=== PATIENT | male | born 1950 | race Caucasian/White ===

== ENCOUNTER 2018-04-15 07:46 | Emergency (ER) | payer MEDICARE, OTHER ==
[~2018-04-15] VITALS: Ht 175.3 cm; Wt 127.0 kg
[~2018-04-15 07:46] MED LIST: AMLO10 PO; ASPI81CH PO; Alphagan P5 ML BOTHEYES; CLIN300 PO; CLOP75 PO; DORZOPSO BOTHEYES; DOXY100T53; ERGO400 PO; ESSENTIA TABLE1 EACH PO; Ferrous Fumara324 MG PO; Furosemide20 MG PO; Gabapentin600 MG PO; Hydrochloroth12.5 MG PO; INSUGL100V SC; LEVO750 PO; LIVALO2 MG PO; LOSA50 PO; LYRICA PO; MECL12.5 PO; METF500C PO; METO25ER PO; METO50ER PO; Novolog Fl100 UNIT/1 INJ; Novolog Mix 70-33 M1 SQ; Silvadene20 GM TOP; TAMSULOSIN HCL0.4 MG PO; TORSE20 PO; TRAM50 PO; Tylenol325 MG PO; Xalatan2.5 ML BOTHEYES; ZESTRIL40 MG PO
[2018-04-15] MEDS ORDERED: CHOL10002 PO (08:01)
[2018-04-15] MEDS ORDERED: FISH OIL 1,0001 EAC2 PO (08:02)
[2018-04-15 09:01] LABS: BASOPHILS ABSOLUTE AUTO 0.04 K/mm3 (0.00-0.23); BASOPHILS PERCENT AUTO 1 % (0-2); EOSINOPHILS ABSOLUTE AUTO 0.28 K/mm3 (0.00-0.68); EOSINOPHILS PERCENT AUTO 4 % (0-6); Hematocrit 36.6 % (37.0-53.0); Hemoglobin 11.8 g/dL (13.5-17.5); IMMATURE GRAN ABSOLUTE AUTO 0.04 K/mm3 (0.00-0.10); IMMATURE GRAN PERCENT AUTO 1 % (0-1); LYMPHOCYTES PERCENT AUTO 16 % (21-46); MONOCYTES ABSOLUTE AUTO 0.98 K/mm3 (0.16-1.47); MONOCYTES PERCENT AUTO 15 % (4-13); Mean Corpuscular HGB 29.6 pg (26.0-34.0); Mean Corpuscular HGB Conc 32.2 g/dL (31.5-36.5); Mean Corpuscular Volume 92 fL (80-100); Mean Platelet Volume 11.4 fL (9.1-12.4); NEUTROPHILS PERCENT AUTO 64 % (41-73); Platelet Count 184 K/mm3 (150-400); RDW Coefficient Variation 13.2 % (11.7-14.2); RDW Standard Deviation 43.7 fL (35.1-46.3); Red Blood Cell Count 3.98 M/mm3 (4.30-5.90); White Blood Cell Count 6.74 K/mm3 (4.00-11.30)
[2018-04-15 09:09] LABS: Alanine Aminotransfer (ALT/SGP 23 U/L (12-78); Albumin, Blood 2.9 g/dL (3.4-5.0); Albumin/Globulin Ratio 0.7 (0.8-1.8); Alk Phos 47 U/L (50-136); Anion Gap 9 mmol/L (6-16); Aspartate Aminotrans (AST/SGOT 13 U/L (12-37); Bilirubin, Total 0.5 mg/dL (0.1-1.0); Blood Urea Nitrogen 39 mg/dL (8-24); CO2, Blood 25 mmol/L (21-32); Calcium, Blood 9.4 mg/dL (8.5-10.1); Chloride, Blood 112 mmol/L (98-108); Globulin, Blood 3.9 g/dL (2.2-4.0); Glomerular Filtration Rate 58 (60-); Glucose, Blood 126 mg/dL (70-99); Magnesium, Blood 2.1 mg/dL (1.6-2.4); Potassium, Blood 3.8 mmol/L (3.5-5.5); Sodium, Blood 146 mmol/L (136-145); Total Protein, Blood 6.8 g/dL (6.4-8.2); Troponin I <0.015 ng/mL (0.000-0.040)
== END 2018-04-15 09:45 | disposition home or self-care (01) ==
LOC: ER 07:46
PROVIDERS: Emergency Medicine
DX: S00.83XA Contusion of other part of head, initial encounter (principal); S00.31XA Abrasion of nose, initial encounter; R55 Syncope and collapse; Z88.8 Allergy status to other drugs, medicaments and biological substances; Z88.0 Allergy status to penicillin; Z88.5 Allergy status to narcotic agent; Z79.899 Other long term (current) drug therapy; Z79.4 Long term (current) use of insulin; Z79.82 Long term (current) use of aspirin; Z87.891 Personal history of nicotine dependence; Z79.01 Long term (current) use of anticoagulants; W18.30XA Fall on same level, unspecified, initial encounter
CPT/HCPCS: 36415; 70450; 71045; 80053; 83735; 84484; 85025; 93005; 93010; 93225; 93226; 99284

== ENCOUNTER 2018-12-12 12:27 | Emergency (ER) | payer MEDICARE, OTHER ==
[~2018-12-12] VITALS: Ht 175.3 cm; Wt 120.2 kg
[~2018-12-12 12:27] MED LIST changes: +CHOL10002 PO; +CYAN500 PO; +FISH OIL 1,0001 EAC2 PO; +WARF7.5 PO
[2018-12-12] MEDS ORDERED: AMLO5 PO (13:19)
== END 2018-12-12 14:27 | disposition home or self-care (01) ==
LOC: ER 12:27
DX: S61.211A Laceration without foreign body of left index finger without damage to nail, initial encounter (principal); Z88.8 Allergy status to other drugs, medicaments and biological substances; Z88.0 Allergy status to penicillin; Z88.5 Allergy status to narcotic agent; Z79.899 Other long term (current) drug therapy; Z79.4 Long term (current) use of insulin; Z79.82 Long term (current) use of aspirin; Z79.01 Long term (current) use of anticoagulants; Z87.891 Personal history of nicotine dependence; W26.8XXA Contact with other sharp object(s), not elsewhere classified, initial encounter
CPT/HCPCS: 12002; 99282-25

== ENCOUNTER 2019-10-11 12:26 | Day surgery (SDC) | payer MEDICARE, OTHER ==
[~2019-10-11] VITALS: Ht 175 cm; Wt 116.9 kg
[~2019-10-11 12:26] MED LIST changes: +AMLO5 PO; +Flonase 0.05% N16 GM; +XYZAL5 MG PO
--- NOTE | 2019-10-11 14:19 | NUR ---
Ambulatory in Day Surgery Surgical site prepped with 2% Chlorhexidine cloth wipe. History, Chart, Medications and Allergies reviewed before start of procedure.Patient confirms NPO status and agrees with scheduled surgery. Pre-Op teaching done. Pt verbalizes understanding. History, Chart, Medications and Allergies reviewed before start of procedure. Patient reports completing Chlorhexadine shower X2 prior to admission to hospital.
[2019-10-12 04:10] LABS: BASOPHILS ABSOLUTE AUTO 0.02 K/mm3 (0.00-0.23); BASOPHILS PERCENT AUTO 0 % (0-2); EOSINOPHILS PERCENT AUTO 0 % (0-6); Hematocrit 33.4 % (37.0-53.0); Hemoglobin 10.9 g/dL (13.5-17.5); IMMATURE GRAN ABSOLUTE AUTO 0.07 K/mm3 (0.00-0.10); IMMATURE GRAN PERCENT AUTO 1 % (0-1); LYMPHOCYTES ABSOLUTE AUTO 0.34 K/mm3 (0.84-5.20); LYMPHOCYTES PERCENT AUTO 3 % (21-46); MONOCYTES ABSOLUTE AUTO 0.74 K/mm3 (0.16-1.47); MONOCYTES PERCENT AUTO 6 % (4-13); Mean Corpuscular HGB 29.9 pg (26.0-34.0); Mean Corpuscular HGB Conc 32.6 g/dL (31.5-36.5); Mean Corpuscular Volume 92 fL (80-100); Mean Platelet Volume 11.5 fL (9.1-12.4); NEUTROPHILS ABSOLUTE AUTO 10.79 K/mm3 (1.96-9.15); NEUTROPHILS PERCENT AUTO 90 % (41-73); Platelet Count 150 K/mm3 (150-400); RDW Coefficient Variation 14.1 % (11.7-14.2); RDW Standard Deviation 46.9 fL (35.1-46.3); Red Blood Cell Count 3.64 M/mm3 (4.30-5.90); White Blood Cell Count 11.96 K/mm3 (4.00-11.30)
[2019-10-12 04:25] LABS: Bun/Creatinine Ratio 21.7 (12.0-20.0); Calcium, Blood 8.3 mg/dL (8.5-10.1); Creatinine, Blood 1.66 mg/dL (0.60-1.20); Magnesium, Blood 1.6 mg/dL (1.6-2.4); Potassium, Blood 4.5 mmol/L (3.5-5.5)
[2019-10-12 04:26] LABS: International Normalized Ratio 1.01; Prothrombin Time Results 10.7 Sec (9.7-11.5)
--- NOTE | 2019-10-12 04:43 | NUR ---
SHIFT SUMMARY: CLIVE IS POD1 FOR A LEFT TOTAL KNEE REPLACEMENT. HE IS A&OX4. HE REPORTS GOOD PAIN CONTROL WITH THE APAP, TORADOL, AND NORCO. HE IS [place], HEARING AIDS AT HOME. HE IS USING THE URINAL WITHOUT DIFFICULTY. HE IS TOLERATING PO INTAKE WELL. HIS BROUGHT HIS CPAP FROM HOME, RT SET IT UP FOR HIM AND HE HAS WORN IT THROUGHOUT THE NIGHT. HE AMBULATED 1 PERSON ASSIST. DRESSING C/D&I. IV TO RIGHT FOREARM PATENT. SCDs, VARINDER MULLER AND POLAR PAC IN PLACE. VSS. HE IS ABLE TO MAKE HIS NEEDS KNOWN. HE IS LYING IN BED WITH HIS CALL LIGHT IN REACH.
[2019-10-12] MEDS ORDERED: HYDR1TAB94 PO (09:49)
[2019-10-12] MEDS ORDERED: ENOX40I SC (09:49)
[2019-10-12] MEDS ORDERED: INSR10I SC (09:55)
[2019-10-12] MEDS ORDERED: PROM25 PO (09:56)
[2019-10-12] MEDS ORDERED: Bactrim Ds Tab1 EACH PO (09:56)
--- NOTE | 2019-10-12 11:55 | NUR ---
10/12/19 1155 Nikia Alvarado VERIFICATIONS: EDIT CHART.
--- NOTE | 2019-10-12 14:17 | NUR ---
PATIENT D/C'D HOME WITH AT THIS TIME; BOTH STATE UNDERSTANDING OF MEDS, WOUND CARE, ACTIVITY, OP PT, F/U APPT, ETC. PATIENT TOLERATING PO, VOIDING. STATES PAIN CONTROLLED WITH PO PAIN MEDS. NO ACUTE CHANGES OR C/O AT THIS TIME.
== END 2019-10-12 14:46 | disposition home or self-care (01) ==
LOC: ORSCMMR 12:26 → ORD 13:45 → ORSCMMR 14:00 → ORD 14:00 → SURS 16:35 → ORD 17:00 → SURS 10-12 14:46 → ORSCMMR 10-12 14:46
PROVIDERS: Orthopaedic Surgery
PROC: 0SRD0J9 Replacement of Left Knee Joint with Synthetic Substitute, Cemented, Open Approach (ICD-10-PCS; principal; 2019-10-11 14:00)
PROC: 8E0YXBZ Computer Assisted Procedure of Lower Extremity (ICD-10-PCS; principal; 2019-10-11 14:00)
DX: M17.12 Unilateral primary osteoarthritis, left knee (principal); E11.22 Type 2 diabetes mellitus with diabetic chronic kidney disease; I12.9 Hypertensive chronic kidney disease with stage 1 through stage 4 chronic kidney disease, or unspecified chronic kidney disease; N18.9 Chronic kidney disease, unspecified; Z79.4 Long term (current) use of insulin; Z79.84 Long term (current) use of oral hypoglycemic drugs; F17.210 Nicotine dependence, cigarettes, uncomplicated; I25.10 Atherosclerotic heart disease of native coronary artery without angina pectoris; E78.5 Hyperlipidemia, unspecified; Z79.899 Other long term (current) drug therapy; E66.01 Morbid (severe) obesity due to excess calories; Z68.38 Body mass index [BMI] 38.0-38.9, adult; Z86.73 Personal history of transient ischemic attack (TIA), and cerebral infarction without residual deficits
CPT/HCPCS: 36415; 73560-LT; 80048; 82947; 83735; 85025; 85610; 88300; 94762; 97110; 97116; 97162; A9270-GY; C1713; C1776; J0171; J0735; J1100; J1650; J1815; J1885; J2250; J2370; J2405; J2704; J2710; J2795; J3010; J3370; J7120

== ENCOUNTER 2020-03-24 12:56 | Emergency (ER) | payer MEDICARE, OTHER ==
[~2020-03-24] VITALS: Ht 175.3 cm; Wt 113.4 kg
[~2020-03-24 12:56] MED LIST changes: +Bactrim Ds Tab1 EACH PO; +ENOX40I SC; +FERSU300 PO; +FURO20 PO; +Fish Oil Conc1000 MG PO; +Glucophage1000 MG PO; +HYDR1TAB94 PO; +INSR10I SC; +INSULANPEN SC; +Lyrica150 MG PO; +METO100ER PO; +NOVOLOG100 UNIT/1; +PROM25 PO; +TAMS.4ER PO; +VITAMIN D5000 UNIT PO; +WARF1 PO; +[UNRECOGNIZED DRUG - OTHER]
[2020-03-24] MEDS ORDERED: LOSA50 PO (13:18)
[2020-03-24] MEDS ORDERED: LATA.005SO (13:19)
[2020-03-24] MEDS ORDERED: BRIMONIDINE TART5 M2 (13:19)
[2020-03-24] MEDS ORDERED: ONDA4ODT MM (14:55)
[2020-03-24] MEDS ORDERED: Norco 5-325 Ta1 EACH PO (14:55)
== END 2020-03-24 15:26 | disposition home or self-care (01) ==
LOC: ER 12:56
DX: S43.102A Unspecified dislocation of left acromioclavicular joint, initial encounter (principal); S01.112A Laceration without foreign body of left eyelid and periocular area, initial encounter; S16.1XXA Strain of muscle, fascia and tendon at neck level, initial encounter; Z88.8 Allergy status to other drugs, medicaments and biological substances; Z88.0 Allergy status to penicillin; Z88.5 Allergy status to narcotic agent; Z79.899 Other long term (current) drug therapy; Z79.4 Long term (current) use of insulin; Z87.891 Personal history of nicotine dependence; V89.9XXA Person injured in unspecified vehicle accident, initial encounter
CPT/HCPCS: 70450; 72125; 73030; 99284-25; A9270-GY

== ENCOUNTER → 2022-01-08 | Outpatient (CLI) | payer OTHER ==
[~2022-01-08] MED LIST changes: +BRIMONIDINE TART5 M2; +LATA.005SO; +Norco 5-325 Ta1 EACH PO; +ONDA4ODT MM
[2022-01-08 10:19] LABS: BASOPHILS ABSOLUTE AUTO 0.05 K/mm3 (0.00-0.23); BASOPHILS PERCENT AUTO 1 % (0-2); EOSINOPHILS ABSOLUTE AUTO 0.22 K/mm3 (0.00-0.68); EOSINOPHILS PERCENT AUTO 4 % (0-6); Hematocrit 35.2 % (37.0-53.0); Hemoglobin 11.6 g/dL (13.5-17.5); IMMATURE GRAN ABSOLUTE AUTO 0.02 K/mm3 (0.00-0.10); IMMATURE GRAN PERCENT AUTO 0 % (0-1); LYMPHOCYTES ABSOLUTE AUTO 0.87 K/mm3 (0.84-5.20); LYMPHOCYTES PERCENT AUTO 15 % (21-46); MONOCYTES ABSOLUTE AUTO 0.71 K/mm3 (0.16-1.47); MONOCYTES PERCENT AUTO 12 % (4-13); Mean Corpuscular HGB 30.8 pg (26.0-34.0); Mean Corpuscular Volume 93 fL (80-100); Mean Platelet Volume 10.6 fL (9.1-12.4); NEUTROPHILS ABSOLUTE AUTO 4.02 K/mm3 (1.96-9.15); NEUTROPHILS PERCENT AUTO 68 % (41-73); Platelet Count 156 K/mm3 (150-400); RDW Coefficient Variation 13.5 % (11.7-14.2); RDW Standard Deviation 45.9 fL (35.1-46.3); Red Blood Cell Count 3.77 M/mm3 (4.30-5.90); White Blood Cell Count 5.89 K/mm3 (4.00-11.30)
[2022-01-08 11:06] LABS: Albumin, Blood 3.2 g/dL (3.4-5.0); Albumin/Globulin Ratio 0.9 (0.8-1.8); Bilirubin, Total 0.2 mg/dL (0.1-1.0); Bun/Creatinine Ratio 26.4 (12.0-20.0); Calcium, Blood 8.6 mg/dL (8.5-10.1); Creatinine, Blood 1.63 mg/dL (0.60-1.20); Free Thyroxine 0.8 ng/dL (0.70-1.60); Globulin, Blood 3.6 g/dL (2.2-4.0); Potassium, Blood 4.7 mmol/L (3.5-5.5); Total Protein, Blood 6.8 g/dL (6.4-8.2)
== END | disposition home or self-care (01) ==
LOC: LAB SHORT 10:11 → LAB 10:11
PROVIDERS: General Practice
DX: R06.09 Other forms of dyspnea (principal); R53.81 Other malaise
CPT/HCPCS: 80053; 83880; 84439; 84443; 85025

== ENCOUNTER → 2022-05-01 | Outpatient (CLI) | payer OTHER ==
[2022-05-01 14:03] LABS: BASOPHILS ABSOLUTE AUTO 0.03 K/mm3 (0.00-0.23); BASOPHILS PERCENT AUTO 1 % (0-2); EOSINOPHILS ABSOLUTE AUTO 0.11 K/mm3 (0.00-0.68); EOSINOPHILS PERCENT AUTO 2 % (0-6); Hematocrit 39.2 % (37.0-53.0); Hemoglobin 13.3 g/dL (13.5-17.5); IMMATURE GRAN ABSOLUTE AUTO 0.02 K/mm3 (0.00-0.10); IMMATURE GRAN PERCENT AUTO 0 % (0-1); LYMPHOCYTES ABSOLUTE AUTO 1.02 K/mm3 (0.84-5.20); LYMPHOCYTES PERCENT AUTO 22 % (21-46); MONOCYTES ABSOLUTE AUTO 0.97 K/mm3 (0.16-1.47); MONOCYTES PERCENT AUTO 21 % (4-13); Mean Corpuscular HGB 31.9 pg (26.0-34.0); Mean Corpuscular HGB Conc 33.9 g/dL (31.5-36.5); Mean Corpuscular Volume 94 fL (80-100); Mean Platelet Volume 10.9 fL (9.1-12.4); NEUTROPHILS ABSOLUTE AUTO 2.56 K/mm3 (1.96-9.15); NEUTROPHILS PERCENT AUTO 54 % (41-73); Platelet Count 141 K/mm3 (150-400); RDW Coefficient Variation 13.4 % (11.7-14.2); RDW Standard Deviation 46.1 fL (35.1-46.3); Red Blood Cell Count 4.17 M/mm3 (4.30-5.90); White Blood Cell Count 4.71 K/mm3 (4.00-11.30)
[2022-05-01 14:58] LABS: Albumin, Blood 3.1 g/dL (3.4-5.0); Albumin/Globulin Ratio 0.8 (0.8-1.8); Bilirubin, Total 0.2 mg/dL (0.1-1.0); Calcium, Blood 8.6 mg/dL (8.5-10.1); Creatinine, Blood 1.74 mg/dL (0.60-1.20); Globulin, Blood 4.1 g/dL (2.2-4.0); Potassium, Blood 4.5 mmol/L (3.5-5.5); Total Protein, Blood 7.2 g/dL (6.4-8.2)
== END | disposition home or self-care (01) ==
LOC: LAB SHORT 13:56
PROVIDERS: Physician Assistant
DX: U07.1 COVID-19 (principal)
CPT/HCPCS: 80053; 85025

== ENCOUNTER 2022-07-24 17:52 | Emergency (ER) | payer OTHER ==
[~2022-07-24] VITALS: Ht 175.3 cm; Wt 113.4 kg
[~2022-07-24 17:52] MED LIST changes: -BRIMONIDINE TART5 M2; +BRIMONIDINE TART5 M2 BOTHEYES
[2022-07-24 18:51] LABS: BASOPHILS ABSOLUTE AUTO 0.04 K/mm3 (0.00-0.23); BASOPHILS PERCENT AUTO 1 % (0-2); EOSINOPHILS ABSOLUTE AUTO 0.17 K/mm3 (0.00-0.68); EOSINOPHILS PERCENT AUTO 3 % (0-6); Hematocrit 40.2 % (37.0-53.0); Hemoglobin 13.5 g/dL (13.5-17.5); IMMATURE GRAN ABSOLUTE AUTO 0.03 K/mm3 (0.00-0.10); IMMATURE GRAN PERCENT AUTO 1 % (0-1); LYMPHOCYTES ABSOLUTE AUTO 1.34 K/mm3 (0.84-5.20); LYMPHOCYTES PERCENT AUTO 21 % (21-46); MONOCYTES ABSOLUTE AUTO 0.83 K/mm3 (0.16-1.47); MONOCYTES PERCENT AUTO 13 % (4-13); Mean Corpuscular HGB 30.8 pg (26.0-34.0); Mean Corpuscular HGB Conc 33.6 g/dL (31.5-36.5); Mean Corpuscular Volume 92 fL (80-100); Mean Platelet Volume 10.7 fL (9.1-12.4); NEUTROPHILS ABSOLUTE AUTO 4.11 K/mm3 (1.96-9.15); NEUTROPHILS PERCENT AUTO 63 % (41-73); Platelet Count 163 K/mm3 (150-400); RDW Coefficient Variation 12.6 % (11.7-14.2); RDW Standard Deviation 41.4 fL (35.1-46.3); Red Blood Cell Count 4.39 M/mm3 (4.30-5.90); White Blood Cell Count 6.52 K/mm3 (4.00-11.30)
[2022-07-24 19:13] LABS: Magnesium, Blood 2.4 mg/dL (1.6-2.4)
[2022-07-24 19:14] LABS: Source, Urine Clean Catch
[2022-07-24 19:21] LABS: Appearance, Urine Clear (Clear); Bilirubin, Urine Neg (Neg); Blood, Urine 2+ (Neg); Glucose Qualitative, Urine Neg (Neg); Ketones, Urine Neg (Neg); Leukocyte Esterase, Urine Neg (Neg); Nitrite, Urine Neg (Neg); Protein, Urine 3+ (Neg); Specific Gravity, Urine 1.015 (1.003-1.022); Urobilinogen, Urine NORM (Normal)
[2022-07-24 19:31] LABS: Color, Urine Pale Yellow (P-Yellow)
[2022-07-24 19:34] LABS: Bacteria Few /hpf; Red Blood Cells, Urine 0-2 /hpf (0-2); Squamous Epithelial Cells Not Seen /hpf (Few); White Blood Cells, Urine 0-2 /hpf (0-5)
[2022-07-24 19:35] LABS: Other Crystals Rare /hpf
[2022-07-24 19:41] LABS: Influenza A, PCR NEGATIVE (NEGATIVE); Influenza B, PCR NEGATIVE (NEGATIVE); Resp Syncytial Virus, PCR NEGATIVE (NEGATIVE); SARS-Cov-2 (COVID-19) PCR, MMC NEGATIVE (NEGATIVE)
[2022-07-24 20:35] LABS: Albumin, Blood 3.3 g/dL (3.4-5.0); Albumin/Globulin Ratio 0.8 (0.8-1.8); Bilirubin, Total 0.3 mg/dL (0.1-1.0); Bun/Creatinine Ratio 32.7 (12.0-20.0); Calcium, Blood 9.3 mg/dL (8.5-10.1); Creatinine, Blood 1.5 mg/dL (0.60-1.20); Globulin, Blood 3.9 g/dL (2.2-4.0); Potassium, Blood 4.4 mmol/L (3.5-5.5); Total Protein, Blood 7.2 g/dL (6.4-8.2)
[2022-07-25] MEDS ORDERED: SOAANZ20 M1 PO (18:47)
[2022-07-25] MEDS ORDERED: TORSE20 PO (18:49)
[2022-07-25] MEDS ORDERED: INSULANI SC (18:51)
[2022-07-25] MEDS ORDERED: FARXIGA10 MG PO (18:57)
[2022-07-25] MEDS ORDERED: TRULICITY3 MG/0.5 M (18:57)
[2022-07-25] MEDS ORDERED: TRULICITY4.5 MG/0.5 SC (18:58)
== END 2022-07-24 21:51 | disposition home or self-care (01) ==
LOC: ER 17:52
PROVIDERS: Student in an Organized Health Care Education/Training Program
DX: G45.9 Transient cerebral ischemic attack, unspecified (principal); B34.9 Viral infection, unspecified; I10 Essential (primary) hypertension; E11.9 Type 2 diabetes mellitus without complications; I25.10 Atherosclerotic heart disease of native coronary artery without angina pectoris; N40.0 Benign prostatic hyperplasia without lower urinary tract symptoms; Z88.0 Allergy status to penicillin; Z88.5 Allergy status to narcotic agent; Z88.8 Allergy status to other drugs, medicaments and biological substances; Z79.4 Long term (current) use of insulin; Z79.01 Long term (current) use of anticoagulants; Z79.899 Other long term (current) drug therapy; Z87.891 Personal history of nicotine dependence; Z20.822 Contact with and (suspected) exposure to COVID-19
CPT/HCPCS: 0241U; 70450; 71045; 80053; 81001; 83735; 83880; 84145; 84484; 85025; 93005; 93010; A9270

== ENCOUNTER 2022-07-25 12:49 | Inpatient (IN) | payer OTHER ==
[~2022-07-25] VITALS: Ht 175.3 cm; Wt 113.4 kg
[~2022-07-25 12:49] MED LIST changes: -LATA.005SO; +LATA.005SO BOTHEYES
[2022-07-25 13:31] LABS: BASOPHILS ABSOLUTE AUTO 0.04 K/mm3 (0.00-0.23); BASOPHILS PERCENT AUTO 1 % (0-2); EOSINOPHILS ABSOLUTE AUTO 0.13 K/mm3 (0.00-0.68); EOSINOPHILS PERCENT AUTO 2 % (0-6); Hematocrit 37.4 % (37.0-53.0); Hemoglobin 12.9 g/dL (13.5-17.5); IMMATURE GRAN ABSOLUTE AUTO 0.01 K/mm3 (0.00-0.10); IMMATURE GRAN PERCENT AUTO 0 % (0-1); LYMPHOCYTES ABSOLUTE AUTO 0.91 K/mm3 (0.84-5.20); LYMPHOCYTES PERCENT AUTO 15 % (21-46); MONOCYTES ABSOLUTE AUTO 0.79 K/mm3 (0.16-1.47); MONOCYTES PERCENT AUTO 13 % (4-13); Mean Corpuscular HGB 31.3 pg (26.0-34.0); Mean Corpuscular HGB Conc 34.5 g/dL (31.5-36.5); Mean Corpuscular Volume 91 fL (80-100); Mean Platelet Volume 10.7 fL (9.1-12.4); NEUTROPHILS PERCENT AUTO 69 % (41-73); Platelet Count 161 K/mm3 (150-400); RDW Coefficient Variation 12.7 % (11.7-14.2); RDW Standard Deviation 41.6 fL (35.1-46.3); Red Blood Cell Count 4.12 M/mm3 (4.30-5.90); White Blood Cell Count 6.08 K/mm3 (4.00-11.30)
[2022-07-25 14:02] LABS: Bun/Creatinine Ratio 32.7 (12.0-20.0); Calcium, Blood 8.7 mg/dL (8.5-10.1); Creatinine, Blood 1.47 mg/dL (0.60-1.20); Potassium, Blood 4.5 mmol/L (3.5-5.5)
[2022-07-25 16:52] LABS: International Normalized Ratio 1.73; Prothrombin Time Results 17.5 Sec (9.7-11.5)
[2022-07-25] MEDS ORDERED: SOAANZ20 M1 PO (18:47)
[2022-07-25] MEDS ORDERED: TORSE20 PO (18:49)
[2022-07-25] MEDS ORDERED: INSULANI SC (18:51)
[2022-07-25] MEDS ORDERED: FARXIGA10 MG PO (18:57)
[2022-07-25] MEDS ORDERED: TRULICITY3 MG/0.5 M (18:57)
[2022-07-25] MEDS ORDERED: TRULICITY4.5 MG/0.5 SC (18:58)
--- NOTE | 2022-07-26 05:36 | NUR ---
CLIVE HAD NO FURTHER DETECTABLE EXTENSION OF HIS CVA SINCE HIS ARRIVAL TO ROOM 364 LAST EVENING. PATIENT HAS A PRONOUNCED LEFT SIDED FACIAL DROOP, WEAKNESS IN LEFT UPPER EXTREMITY NOTICEABLE MOSTLY IN A VERY WEAK TARIFF COMPILER. CLIVE IS ABLE TO ELEVATE HIS ARM OFF OF THE BED AND KEEP IT LEVEL WITH HIS RIGHT ARM FOR >20 SECONDS. LEFT LEG, HE COULD BARELY LIFT MORE THAN 1-1.5" OFF OF THE MATTRESS AND WAS UNABLE TO HOLD IT AT ALL. HE IS ABLE TO DORSI AND PLANTERFLEX WITH STRENGTH EQUAL TO HIS RIGHT FOOT. MICONAZOLE POWDER WAS ORDERED FOR HIS LEFT FLANK AREA WHICH IS VERY HOT PINK AND EXCORIATED IN APPEARANCE. PATIENT IS HAVING DIFFICULTY REMEMBERING TO TIP CHIN DOWN WHEN SWALLOWING, WITHOUT ASSISTANCE FROM NURSING STAFF, HE CHOKES WITHOUT PROPER ASSISTANCE. EVAL BY SPEECH THERAPIST PENDING. IN THE INTERIM, ALL FLUIDS TO BE TAKEN OUT OF DIRECT REACH, AND GIVEN ONLY BY STAFF OR TRAINED FAMILY. REACH,
[2022-07-26 06:02] LABS: Hemoglobin 13.6 g/dL (13.5-17.5); Mean Corpuscular HGB 30.8 pg (26.0-34.0); Mean Corpuscular Volume 91 fL (80-100); Mean Platelet Volume 10.7 fL (9.1-12.4); Platelet Count 182 K/mm3 (150-400); RDW Coefficient Variation 12.6 % (11.7-14.2); RDW Standard Deviation 41.7 fL (35.1-46.3); Red Blood Cell Count 4.42 M/mm3 (4.30-5.90); White Blood Cell Count 8.21 K/mm3 (4.00-11.30)
[2022-07-26 06:16] LABS: International Normalized Ratio 1.48; Prothrombin Time Results 15.1 Sec (9.7-11.5)
[2022-07-26 06:47] LABS: Alanine Aminotransfer (ALT/SGP 23 U/L (12-78); Albumin/Globulin Ratio 0.7 (0.8-1.8); Alk Phos 52 U/L (50-136); Anion Gap 7 mmol/L (6-16); Aspartate Aminotrans (AST/SGOT 12 U/L (12-37); Bilirubin, Total 0.4 mg/dL (0.1-1.0); Blood Urea Nitrogen 42 mg/dL (8-24); Bun/Creatinine Ratio 30.7 (12.0-20.0); CHOL/HDL RATIO 9.2; CO2, Blood 23 mmol/L (21-32); Calcium, Blood 9.4 mg/dL (8.5-10.1); Chloride, Blood 112 mmol/L (98-108); Cholesterol 342 mg/dL (50-200); Creatinine, Blood 1.37 mg/dL (0.60-1.20); Globulin, Blood 4.2 g/dL (2.2-4.0); Glomerular Filtration Rate 54 (60-); Glucose, Blood 113 mg/dL (70-99); HDL Cholesterol 37 mg/dL (>39); LDL/HDL RATIO Unable to Calculate; Low Density Lipoprotein Chol Unable to Calculate mg/dL (0-110); Sodium, Blood 142 mmol/L (136-145); Total Protein, Blood 7.2 g/dL (6.4-8.2); Triglycerides 1315 mg/dL (30-160); Very Low Density Lipoprot Chol 263 mg/dL (6-32)
--- NOTE | 2022-07-26 07:30 | NUR ---
ASSUMED CARE: PT RESTING IN BED, INTERACTIVE WITH STAFF DURING BEDSIDE REPORT. LEFT SIDED FACIAL DROOP NOTED. NIGHT RN REPORTS IMPROVED. NO ACUTE NEEDS AT THIS TIME.
[2022-07-26] MEDS ORDERED: DORZOPSO BOTHEYES (10:48)
[2022-07-26] MEDS ORDERED: XYZAL5 MG PO (10:50)
[2022-07-26] MEDS ORDERED: AMLO5 PO (10:50)
--- NOTE | 2022-07-26 15:56 | NUR ---
PT'S EVENING BP IN 170S SYSTOLIC. CALL TO DR KESSLER. STATES TO MAINTAIN BP LESS THAN 180 SYSTOLIC. ALSO RELAYED PT'S FEELINGS OF CONSTIPATION. DR TO PLACE NEW ORDERS.
--- NOTE | 2022-07-26 17:58 | NUR ---
SHIFT SUMMARY: PT'S NEURO ASSESSMENTS HAVE IMPROVED ALL SHIFT. INCREASED STRENGTH TO LEFT ARM AND FINGERS AND SPEECH IS MORE CLEAR. PT DOING BED EXERCISES IN GOALS OF IMPROVING MOBILITY. PT AND FAMILY EDUCATED ON PLAN OF CARE FOR STROKE. SAID SHE HEARD THERE WAS INCREASED RISK OF SECOND STROKE, EDUCATED ON SIGNS AND SYMPTOMS TO WATCH FOR. DENIES QUESTIONS OR CONCERNS. NEW IV THIS SHIFT.
[2022-07-27 04:55] LABS: BASOPHILS ABSOLUTE AUTO 0.05 K/mm3 (0.00-0.23); BASOPHILS PERCENT AUTO 1 % (0-2); EOSINOPHILS ABSOLUTE AUTO 0.23 K/mm3 (0.00-0.68); EOSINOPHILS PERCENT AUTO 2 % (0-6); Hemoglobin 14.1 g/dL (13.5-17.5); IMMATURE GRAN ABSOLUTE AUTO 0.03 K/mm3 (0.00-0.10); IMMATURE GRAN PERCENT AUTO 0 % (0-1); LYMPHOCYTES ABSOLUTE AUTO 1.18 K/mm3 (0.84-5.20); LYMPHOCYTES PERCENT AUTO 12 % (21-46); MONOCYTES ABSOLUTE AUTO 1.55 K/mm3 (0.16-1.47); MONOCYTES PERCENT AUTO 16 % (4-13); Mean Corpuscular HGB 30.8 pg (26.0-34.0); Mean Corpuscular HGB Conc 33.6 g/dL (31.5-36.5); Mean Corpuscular Volume 92 fL (80-100); Mean Platelet Volume 10.5 fL (9.1-12.4); NEUTROPHILS ABSOLUTE AUTO 6.97 K/mm3 (1.96-9.15); NEUTROPHILS PERCENT AUTO 70 % (41-73); Platelet Count 178 K/mm3 (150-400); RDW Coefficient Variation 12.6 % (11.7-14.2); RDW Standard Deviation 42.4 fL (35.1-46.3); Red Blood Cell Count 4.58 M/mm3 (4.30-5.90); White Blood Cell Count 10.01 K/mm3 (4.00-11.30)
[2022-07-27 05:02] LABS: International Normalized Ratio 1.42; Prothrombin Time Results 14.6 Sec (9.7-11.5)
[2022-07-27 05:45] LABS: Anion Gap 8 mmol/L (6-16); Blood Urea Nitrogen 39 mg/dL (8-24); Bun/Creatinine Ratio 28.1 (12.0-20.0); CO2, Blood 22 mmol/L (21-32); Calcium, Blood 9.4 mg/dL (8.5-10.1); Chloride, Blood 109 mmol/L (98-108); Creatinine, Blood 1.39 mg/dL (0.60-1.20); Glomerular Filtration Rate 54 (60-); Glucose, Blood 170 mg/dL (70-99); Phosphorus, Blood 3.1 mg/dL (2.5-4.9); Potassium, Blood 4.2 mmol/L (3.5-5.5); Sodium, Blood 139 mmol/L (136-145)
--- NOTE | 2022-07-27 05:57 | NUR ---
PT ADMITTED WITH TIA/CVA. CT OF HEAD SHOWS NO NEW INFARCT. UNABLE TO PERFORM MRI D/T SILVER PLATING IN PT'S NECK; PLAN FOR REPEAT CT THIS AM. PT AWOKE CONFUSED, UNAWARE HE WAS HOSPITALIZED, WHILE CALLING OUT FOR HIS "MAIRA". UPON ENTERING ROOM, PT FOUND TO BE SATURATED OF URINE; BED/GOWN CHANGE COMPLETED. BED ALARM ACTIVATED. BP NOTED TO BE ELEVATED TOWARD EARLY HOURS (180'S/100'S); ALSO C/O HEADACHE. PRN HYDRALAZINE AND TYLENOL GIVEN. NOTIFIED, ADVISED TO MONITOR FOR NOW. NO OTHER ISSUES NOTED.
--- NOTE | 2022-07-27 18:40 | NUR ---
Assummed care of patient at 1200, handoff report at bedside. Patient worked with therapy. Denied pain/discomfort. Pills given whole with applesauce, set up meal tray, patient able to feed self. Vitals stable. Will continue to monitor.
[2022-07-28 05:07] LABS: International Normalized Ratio 1.65; Prothrombin Time Results 16.8 Sec (9.7-11.5)
--- NOTE | 2022-07-28 06:42 | NUR ---
NOC SHIFT SUMMARY PT ADMITTED FOR CVA. LEFT SIDED DEFICITS WORSENING. PT HAVING DIFFICULT TIME GETTING PATIENT TO EDGE OF BED D/T SEVERE WEAKNESS. MULTIPLE DIAGNOSTIC TESTS TO BE DONE YET. ANTICIPATE MULTIPLE MORE DAYS OF INPATIENT HOSPITALIZATION. NO ISSUES NOTED.
--- NOTE | 2022-07-28 16:24 | NUR ---
PT AOX4 AND COOPERATIVE OF CARE. PT CONTINUES WITH L SIDED WEAKNESS AND HAS WORKED WITH OT AND PHYSICAL THERAPY WELL TODAY. PT DOES GET TIRED QUICKLY. PT CAN CALL APPROPRIATELY AND MAKES HIS NEEDS KNOWN. PT SAT UP IN CHAIR FOR A SHORT TIME IN THE AM THEN WANTED BACK TO BED. CALL LIGHT IS WITHIN REACH WILL CONTINUE TO MONITOR.
[2022-07-29 05:34] LABS: International Normalized Ratio 1.94; Prothrombin Time Results 19.5 Sec (9.7-11.5)
--- NOTE | 2022-07-29 05:34 | NUR ---
Rn summary: Patient is alert and oriented. He does have some slurred speech with L sided faial droop. Pt neuro is unchanged. He has a weak left hand shearing machine tender. He is able to raise left arm off bed but it is painful due to old shoulder injury. Pt is able to do push pulls with left foot and raise left knee. Pt is able to assist with turning but needs assist in positioning. Pt is incontinent of urine. Condom cath was placed but did not stay on. Pt tries to use urinal himself and usually spills it. Although he can use the call light, he tries to use urinal by himself although we have asked him to call. Pt is able to take pills whole with water without difficulty. He did c/o back pain this morning and tylenol was given. Pt is using his CPAP from home and has rested well. Plan is to hopefully place in a IRU in [place].
--- NOTE | 2022-07-29 17:05 | NUR ---
PT IS A/OX4, PLEASANT AND COOPERATIVE. PT HAS SOME SLURRED SPEECH AND IS HARD TO UNDERSTAND AT TIMES. THE PT HAS A LEFT SIDE FACIAL DROOP. THE PT APPEARS TO BE BREATHING EASILY ON RA AT THIS TIME. THE PT WAS ABLE TO GET UP FROM THE BED WITH ASSISTANCE THIS AM AND SHUFFLE TO THE RECLINER. THE PT WAS UP IN THE RECLINER FOE OVER HALF THE DAY TODAY. PT WAS MEDICATED FOR BACK AND SHOULDER PAIN X2 TODAY. THE PT WORKED WITH BOTH THE PHYSICAL AND OCCUPATIONAL THERAPIST TODAY. PTS WAS AT THE BEDSIDE FOR MOST OF THE DAY. CALL LIGHT IN REACH. WILL CONTINUE TO MONITOR AND ASSESS FOR CHANGES
[2022-07-30 05:00] LABS: International Normalized Ratio 2.13; Prothrombin Time Results 21.3 Sec (9.7-11.5)
--- NOTE | 2022-07-30 06:54 | NUR ---
Rn summary: Patient is alert. He is cooperative and thankful for cares given. Pt is frequently incontinent of urine. Pt was incontinent of loose stool the beginning of shift. Pt sleeps with his home CPAP, cont. Biox is on, sats low 90's. Pt does have redened areas on buttocks, no open areas noted. Pt has an area to his Rt heel that is healed but heal mepilex applied for protection, states hot pipe gauger has been working to keep it healed. Pt left arm is more functional, he is able to lift it higher, etl analyst did seem slightly less strong tonight. Still has slurred speach. Pt is able to use call light. Pt has facial droop and tounge does deviate to the left. Pt repositioned frequently. Pt slept very little. Pt was medicated at the beginning of shift with fentanyl 2 mcg for left shoulder pain, he did get relief and rested afterward. report given to day shift.
--- NOTE | 2022-07-30 16:42 | NUR ---
PT IS A/OX4, PLEASANT AND COOPERATIVE. THE PT IS A MAX ASSIST UP . THE PT WAS ABLE TO STAND UP AND MOVE TO THE CHAIR EARLY THIS AM WITH 1 ASSIST, HOWEVER, WHEN GETTING BACK TO THE BED THIS AFTERNOON THE PT WAS VERY WEAK AND REQUIRED 2 PERSON MAX ASSIST TRANSFER. THE PT REPORTED PAIN IN HIS BACK, LEFT SHOULDER AND LEFT ANKLE. THE PT WAS MEDICATED FOR PAIN T/O THE DAY. THE PTS FAMILY WAS CONCERNED THAT THE PT OCCASIONALY COUGHED WHILE EATING . DR. KESSLER WAS CALLED PER THIER REQUEST AND A SPEECH THERAPY EVAL WAS ORDERED. THE PT SEEMED TO DRINK WATER T/O THE DAY WITHOUT COUGHING. THE PT APPEARS TO BE BREATHING EASILY ON RA AT THIS TIME. CALL LIGHT IN REACH. WILL CONTINUE TO MONITOR AND ASSESS FOR CHANGES
[2022-07-31 04:52] LABS: International Normalized Ratio 2.09; Prothrombin Time Results 20.9 Sec (9.7-11.5)
--- NOTE | 2022-07-31 05:58 | NUR ---
SHIFT SUMMARY PT ALERT AND ORIENTED X4. DISORIENTED TO TIME. AFEBRILE. HR 70'S. BP STABLE. ON RA, SATS OVER 93%. ON CPAP WHILE SLEEPING. STRUGGLED TO DO ADL'S ON OWN. WOULD FREQUENTLY ATTEMPT TO USE BEDSIDE URINAL BUT "[employer]" AND URINATE BED, D/T LEFT SIDE WEAKNESS. ABLE TO MAKE NEEDS KNOWN. BACK PAIN RELIEVED WITH TYLENOL. IN BED WITH CALL ALARM AT SIDE, WILL CONTINUE TO MONITOR UNTIL REPORT GIVEN TO DAYSHIFT RN
--- NOTE | 2022-07-31 16:03 | NUR ---
SHIFT SUMMARY PT ALERT AND PLEASANT. PT CONTINUES TO HAVE LEFT SIDED WEAKNESS. PT WAS ABLE TO STAND AND PIVOT TO BEDSIDE CHAIR WITH TWO PERSON MAX ASSIST. HOWEVER, A LIFT WAS USED TO GET PT FROM CHAIR TO BED. THE LIFT IS RECCOMENDED FOR TRANSFERS PER PHYSICAL THERAPY. PHYSICAL AND OCCUPATIONAL THERAPY WORKED WITH PT TODAY. PT ALSO HAD A SPEACH EVAL TODAY. PT STATED HE WAS SEEING ANIMALS IN HIS ROOM BUT KNEW THEY WERE NOT REALLY THERE. DOCTOR WAS NOTIFIED OF THE HAULICINATIONS. PT IS TAKING FENTANYL WHICH IS THE SUSPECTED CAUSE OF THE HALUCINATIONS. PT ATTEMPTS TO USE URINAL BUT HAS DIFFICULTY CATCING ALL THE URINE. PT HAS ATTENDS IN PLACE. POSSIBLE D/C TO IRF NEXT WEEK PER PHYSICAL THERAPY.
[2022-08-01 04:36] LABS: BASOPHILS ABSOLUTE AUTO 0.05 K/mm3 (0.00-0.23); BASOPHILS PERCENT AUTO 1 % (0-2); EOSINOPHILS ABSOLUTE AUTO 0.21 K/mm3 (0.00-0.68); EOSINOPHILS PERCENT AUTO 2 % (0-6); Hematocrit 36.6 % (37.0-53.0); Hemoglobin 12.1 g/dL (13.5-17.5); IMMATURE GRAN ABSOLUTE AUTO 0.04 K/mm3 (0.00-0.10); IMMATURE GRAN PERCENT AUTO 0 % (0-1); LYMPHOCYTES ABSOLUTE AUTO 0.83 K/mm3 (0.84-5.20); LYMPHOCYTES PERCENT AUTO 8 % (21-46); MONOCYTES ABSOLUTE AUTO 1.88 K/mm3 (0.16-1.47); MONOCYTES PERCENT AUTO 17 % (4-13); Mean Corpuscular HGB Conc 33.1 g/dL (31.5-36.5); Mean Corpuscular Volume 94 fL (80-100); Mean Platelet Volume 10.8 fL (9.1-12.4); NEUTROPHILS ABSOLUTE AUTO 7.92 K/mm3 (1.96-9.15); NEUTROPHILS PERCENT AUTO 72 % (41-73); Platelet Count 162 K/mm3 (150-400); RDW Coefficient Variation 12.3 % (11.7-14.2); RDW Standard Deviation 42.5 fL (35.1-46.3); White Blood Cell Count 10.93 K/mm3 (4.00-11.30)
[2022-08-01 04:50] LABS: International Normalized Ratio 2.1
[2022-08-01 05:02] LABS: Albumin, Blood 2.7 g/dL (3.4-5.0); Anion Gap 8 mmol/L (6-16); Blood Urea Nitrogen 58 mg/dL (8-24); Bun/Creatinine Ratio 31.5 (12.0-20.0); CO2, Blood 20 mmol/L (21-32); Calcium, Blood 9.2 mg/dL (8.5-10.1); Chloride, Blood 107 mmol/L (98-108); Creatinine, Blood 1.84 mg/dL (0.60-1.20); Glomerular Filtration Rate 38 (60-); Glucose, Blood 161 mg/dL (70-99); Magnesium, Blood 2.4 mg/dL (1.6-2.4); Potassium, Blood 4.6 mmol/L (3.5-5.5); Sodium, Blood 135 mmol/L (136-145)
--- NOTE | 2022-08-01 16:10 | NUR ---
SHIFT SUMMARY PATIENT IS ALERT AND ORIENTED. PATIENT HAS BEEN PLEASENT AND COOPERATIVE WITH CARE. PATIENT HAS NOT HAD ANY ACUTE EVENTS THIS SHIFT. VITAL SIGNS REVIEWED. PATIENT IS PLANNING ON DISCHARGING TO SNF ON WEDNESDAY. PATIENT HAS COMPLAINED OF BACK PAIN ONCE THIS SHIFT, MEDICATED PER EMAR. PATIENT HAS NOT COMPLAINED OF NAUSEA, VOMITTING OR SOB THIS SHIFT. HUGO MONITOR UNTIL SHIFT CHANGE.
--- NOTE | 2022-08-02 04:16 | NUR ---
SHIFT SUMMARY; PATIENT WORE HIS CPAP DURING NOC SHIFT. HE HAD PLEASANT AFFECT AND WAS COOPERATIVE WITH CARE DURING NOC. HIS VITAL SIGNS ARE WITHIN NORMAL LIMITS. HE IS ABLE TO MAKE HIS NEEDS KNOWN AND USING CALL LIGHT APPROPRIATELY. CONDOM CATHETER PLACED ON PATIENT DURING NOC SHIFT FOR COMFORT. HIS LUNGS ARE CLEAR TO AUSCULATION BUT DIM IN THE BASES. WILL CONTINUE TO MONITOR THIS PATIENT CLOSELY UNTIL REPORT AND HAND OFF AT SHIFT CHANGE TO DAY SHIFT RN.
[2022-08-02 04:44] LABS: Albumin, Blood 2.5 g/dL (3.4-5.0); Anion Gap 7 mmol/L (6-16); Blood Urea Nitrogen 59 mg/dL (8-24); Bun/Creatinine Ratio 31.4 (12.0-20.0); CO2, Blood 20 mmol/L (21-32); Calcium, Blood 8.9 mg/dL (8.5-10.1); Chloride, Blood 107 mmol/L (98-108); Creatinine, Blood 1.88 mg/dL (0.60-1.20); Glomerular Filtration Rate 37 (60-); Glucose, Blood 169 mg/dL (70-99); International Normalized Ratio 2.16; Magnesium, Blood 2.5 mg/dL (1.6-2.4); Potassium, Blood 4.9 mmol/L (3.5-5.5); Prothrombin Time Results 21.6 Sec (9.7-11.5); Sodium, Blood 134 mmol/L (136-145)
[2022-08-02 05:59] LABS: BASOPHILS ABSOLUTE AUTO 0.03 K/mm3 (0.00-0.23); BASOPHILS PERCENT AUTO 0 % (0-2); EOSINOPHILS ABSOLUTE AUTO 0.19 K/mm3 (0.00-0.68); EOSINOPHILS PERCENT AUTO 3 % (0-6); Hemoglobin 11.4 g/dL (13.5-17.5); IMMATURE GRAN ABSOLUTE AUTO 0.03 K/mm3 (0.00-0.10); IMMATURE GRAN PERCENT AUTO 0 % (0-1); LYMPHOCYTES ABSOLUTE AUTO 0.84 K/mm3 (0.84-5.20); LYMPHOCYTES PERCENT AUTO 11 % (21-46); MONOCYTES ABSOLUTE AUTO 1.52 K/mm3 (0.16-1.47); MONOCYTES PERCENT AUTO 20 % (4-13); Mean Corpuscular HGB 30.6 pg (26.0-34.0); Mean Corpuscular HGB Conc 33.5 g/dL (31.5-36.5); Mean Corpuscular Volume 91 fL (80-100); Mean Platelet Volume 10.7 fL (9.1-12.4); NEUTROPHILS ABSOLUTE AUTO 5.11 K/mm3 (1.96-9.15); NEUTROPHILS PERCENT AUTO 66 % (41-73); Platelet Count 176 K/mm3 (150-400); RDW Coefficient Variation 12.1 % (11.7-14.2); RDW Standard Deviation 40.8 fL (35.1-46.3); Red Blood Cell Count 3.72 M/mm3 (4.30-5.90); White Blood Cell Count 7.72 K/mm3 (4.00-11.30)
[2022-08-02 12:40] LABS: Albumin, Blood 2.5 g/dL (3.4-5.0); Anion Gap 7 mmol/L (6-16); Blood Urea Nitrogen 59 mg/dL (8-24); Bun/Creatinine Ratio 32.8 (12.0-20.0); CO2, Blood 20 mmol/L (21-32); Chloride, Blood 106 mmol/L (98-108); Glomerular Filtration Rate 39 (60-); Glucose, Blood 168 mg/dL (70-99); Phosphorus, Blood 3.9 mg/dL (2.5-4.9); Potassium, Blood 4.7 mmol/L (3.5-5.5); Sodium, Blood 133 mmol/L (136-145)
--- NOTE | 2022-08-02 16:51 | NUR ---
SHIFT SUMMARY PATIENT IS ALERT AND ORIENTED. PATIENT HAS NOT HAD ANY ACUTE EVENTS THIS SHIFT. VITAL SIGNS REVIEWED. PATIENT HAS BEEN IN CHAIR MOST OF SHIFT. PATIENT HAS BEEN USING URINAL WELL. PATIENT HAS NOT COMPLAINED OF NAUSEA, PAIN, SOB OR VOMMITING THIS SHIFT. BED IN LOCKED AND LOWEST POSITION. CALL LIGHT IN PLACE. WILL MONITOR UNTIL SHIFT CHANGE.
[2022-08-03 05:23] LABS: BASOPHILS ABSOLUTE AUTO 0.04 K/mm3 (0.00-0.23); BASOPHILS PERCENT AUTO 1 % (0-2); EOSINOPHILS ABSOLUTE AUTO 0.19 K/mm3 (0.00-0.68); EOSINOPHILS PERCENT AUTO 3 % (0-6); Hematocrit 35.1 % (37.0-53.0); Hemoglobin 11.4 g/dL (13.5-17.5); IMMATURE GRAN ABSOLUTE AUTO 0.03 K/mm3 (0.00-0.10); IMMATURE GRAN PERCENT AUTO 0 % (0-1); LYMPHOCYTES ABSOLUTE AUTO 1.02 K/mm3 (0.84-5.20); LYMPHOCYTES PERCENT AUTO 14 % (21-46); MONOCYTES PERCENT AUTO 19 % (4-13); Mean Corpuscular HGB 30.3 pg (26.0-34.0); Mean Corpuscular HGB Conc 32.5 g/dL (31.5-36.5); Mean Corpuscular Volume 93 fL (80-100); Mean Platelet Volume 10.8 fL (9.1-12.4); NEUTROPHILS ABSOLUTE AUTO 4.81 K/mm3 (1.96-9.15); NEUTROPHILS PERCENT AUTO 64 % (41-73); Platelet Count 197 K/mm3 (150-400); RDW Coefficient Variation 12.1 % (11.7-14.2); RDW Standard Deviation 41.9 fL (35.1-46.3); Red Blood Cell Count 3.76 M/mm3 (4.30-5.90); White Blood Cell Count 7.49 K/mm3 (4.00-11.30)
[2022-08-03 05:36] LABS: International Normalized Ratio 2.09; Prothrombin Time Results 20.9 Sec (9.7-11.5)
[2022-08-03 05:51] LABS: Albumin, Blood 2.6 g/dL (3.4-5.0); Albumin/Globulin Ratio 0.6 (0.8-1.8); Bilirubin, Total 0.2 mg/dL (0.1-1.0); Bun/Creatinine Ratio 35.5 (12.0-20.0); Calcium, Blood 9.2 mg/dL (8.5-10.1); Creatinine, Blood 1.69 mg/dL (0.60-1.20); Globulin, Blood 4.4 g/dL (2.2-4.0); Magnesium, Blood 2.7 mg/dL (1.6-2.4); Potassium, Blood 4.8 mmol/L (3.5-5.5)
--- NOTE | 2022-08-03 06:19 | NUR ---
SHIFT SUMMARY; PATIENT NOTED TO BECOME SLIGHTLY CONFUSED DURING NIGHT AND TRYING TO GET OUT OF BED. HE REMOVED HIS CPAP AND WAS PULLING AT LINES. REMOVED HIS CONDOM CATH. HE WAS EASILY REDIRECTABLE AND ALLOWED STAFF TO RETURN HIM TO RESTING POSITION AND REPLACE HIS CPAP. HIS VITAL SIGNS ARE STABLE AND HE IS NOT FEBRILE. HE HAS REDDENED AREA UNDER HIS PANUS AND HIS GROIN AREA. ANTI FUNGAL POWDER IS PLACED OVER RED AREAS. PATIENT DENIES ANY PAIN OR DISCOMFORT. NEURO CHECKS ARE DONE Q 4 HOURS AND NO CHANGE IN HIS NEUROS IS NOTED FROM BEGININNG OF SHIFT. HIS LUNGS ARE DIM AND HE IS NOTED TO HAVE CRACKLES IN THE BASES. WILL REMAIN AVAILABLE FOR THIS PATIENT FOR ANY WANTS OR NEEDS THAT COME UP PRIOR TO SHIFT CHANGE AND REPORT TO DAY SHIFT RN.
--- NOTE | 2022-08-03 16:31 | NUR ---
SHIFT SUMMARY PT AWAKE DURING SHIFT REPORT. L SIDED WEAKNESS WITH L FACIAL DROOP. PT IS A&O, BUT REPORTS THAT HE GETS CONFUSED AT TIMES; SOMETIMES FORGETFUL. ABLE TO GET UP TO EOB WITH P/T. PT ALSO ABLE TO STAND AT BS SEVERAL TIMES WITH HELP OF P/T USING GB AND SIT TO STAND EQUIPMENT. PT IS VERY WEAK AND DECONDITIONED, BUT WILLING TO WORK WITH THERAPY. PT TO D/C TO IRU IN [place] TOMORROW. IN TO VISIT A COUPLE OF TIMES. REMAINS ON A [facility] SOFT DIET PER SPEECH EVAL. NO C/O. CALL LT IN REACH. ABLE TO MAKE NEEDS KNOWN.
--- NOTE | 2022-08-04 01:28 | NUR ---
08/03/222102 PT SITTING IN RECLINER AT BEDSIDE. REPORTS PAIN IN BACK OF HEAD, GAVE TYLENOL, WILL EVAL FOR EFFECT. BS IS 181. WEAKNESS X 4 WITH L UE/LE BEING WEAKER, L FACIAL DROOP. EDEMA IN LE'S WITH 1+ IN R AND 2+ IN L. REDNESS ON BOTTOM WITH SMALL AREA OF SBD ON L BUTTOCK. CONDOM CATHETER IN USE. NO OTHER APPARENT SIGNS OF DISTRESS. CALL LIGHT IS IN REACH.
--- NOTE | 2022-08-04 01:38 | NUR ---
0000 PT LYING IN BED, EYES CLOSED, APPEARS TO BE RESTING.BREATHING IS EVEN, UNLABORED. NO APPARENT SIGNS OF DISTRESS. CALL LIGHT IS IN REACH. BED ALARM IS ON.
--- NOTE | 2022-08-04 02:05 | NUR ---
PT LYING IN BED, EYES CLOSED, APPEARS TO BE RESTING. BREATHING IS EVEN, UNLABORED.NO APPARENT SIGNS OF DISTRESS. CALL LIGHT IS IN REACH. BED ALARM IS ON.
--- NOTE | 2022-08-04 03:28 | NUR ---
PT LYING IN BED, AWAKE, WATCHING TV. NO APPARENT SIGNS OF DISTRESS.DENIES NEED FOR ANYTHING AT THIS TIME. CALL LIGHT IS IN REACH. BED ALARM IS ON.
--- NOTE | 2022-08-04 03:38 | NUR ---
PTIS AAO X 3, REPORTED PAIN IN BACK OF HEAD, GOT TYLENOL. EDEMA ON LE WITH MORE IN L LEG. REDNESS ON BOTTOM WITH SMALL AREA OF SBD ON L BUTTOCK. USING CONDOM CATH. BS WAS 181.
[2022-08-04 04:53] LABS: BASOPHILS ABSOLUTE AUTO 0.04 K/mm3 (0.00-0.23); BASOPHILS PERCENT AUTO 1 % (0-2); EOSINOPHILS PERCENT AUTO 3 % (0-6); Hematocrit 33.6 % (37.0-53.0); Hemoglobin 10.9 g/dL (13.5-17.5); IMMATURE GRAN ABSOLUTE AUTO 0.03 K/mm3 (0.00-0.10); IMMATURE GRAN PERCENT AUTO 0 % (0-1); LYMPHOCYTES ABSOLUTE AUTO 1.09 K/mm3 (0.84-5.20); LYMPHOCYTES PERCENT AUTO 15 % (21-46); MONOCYTES ABSOLUTE AUTO 1.34 K/mm3 (0.16-1.47); MONOCYTES PERCENT AUTO 18 % (4-13); Mean Corpuscular HGB 30.2 pg (26.0-34.0); Mean Corpuscular HGB Conc 32.4 g/dL (31.5-36.5); Mean Corpuscular Volume 93 fL (80-100); Mean Platelet Volume 10.9 fL (9.1-12.4); NEUTROPHILS ABSOLUTE AUTO 4.73 K/mm3 (1.96-9.15); NEUTROPHILS PERCENT AUTO 64 % (41-73); Platelet Count 209 K/mm3 (150-400); RDW Coefficient Variation 11.9 % (11.7-14.2); RDW Standard Deviation 40.5 fL (35.1-46.3); Red Blood Cell Count 3.61 M/mm3 (4.30-5.90); White Blood Cell Count 7.43 K/mm3 (4.00-11.30)
[2022-08-04 05:11] LABS: Albumin, Blood 2.5 g/dL (3.4-5.0); Anion Gap 6 mmol/L (6-16); Blood Urea Nitrogen 60 mg/dL (8-24); Bun/Creatinine Ratio 32.1 (12.0-20.0); CO2, Blood 21 mmol/L (21-32); Calcium, Blood 9.1 mg/dL (8.5-10.1); Chloride, Blood 110 mmol/L (98-108); Creatinine, Blood 1.87 mg/dL (0.60-1.20); Glomerular Filtration Rate 38 (60-); Glucose, Blood 134 mg/dL (70-99); International Normalized Ratio 2.13; Magnesium, Blood 2.4 mg/dL (1.6-2.4); Phosphorus, Blood 3.6 mg/dL (2.5-4.9); Potassium, Blood 4.5 mmol/L (3.5-5.5); Prothrombin Time Results 21.3 Sec (9.7-11.5); Sodium, Blood 137 mmol/L (136-145)
--- NOTE | 2022-08-04 05:41 | NUR ---
PT LYING IN BED, EYES CLOSED, APPEARS TO BE RESTING. BREATHING IS EVEN, UNLABORED.NO APPARENT SIGNS OF DISTRESS. CALL LIGHT IS IN REACH. NO OTHER CHANGES THIS SHIFT.
--- NOTE | 2022-08-04 17:51 | NUR ---
SHIFT SUMMARY PT A&OX4 AND IN PLEASENT MOOD T/O SHIFT. IN T/O SHIFT W/ PT. PT ABLE TO STAND FOR BSC USE. TOLERATING PO INTAKE WELL @ THIS TIME. D/C POSTPONED DUE TO INSURANCE AUTH. PLAN TO D/C TO [facility]. CALL LIGHT W/IN REACH. VSS.
--- NOTE | 2022-08-05 00:16 | NUR ---
GOT REPORT FROM ZAKI TRINH, WILL BE TAKING OVER CARE OF THIS PT AT 0100.
--- NOTE | 2022-08-05 00:31 | NUR ---
PT AWAKE DURING SHIFT REPORT, SITTING UP IN RECLINER AT BS. PT LATER REQUESTING TO GET TO BSC, BUT UNABLE TO STAND AT ALL TO EVEN PIVOT TX. LIFT USED TO RETURN PT BACK TO BED BUT THEN DECIDED HE DIDN'T NEED THE BED DAVID. PT LATER INCONTINENT OF BOWEL AND BLADDER. PT ASSISTED WITH PHONE TO CALL BEFORE GOING TO SLEEP. RT NOTIFIED FOR ASSIST WITH BIPAP WHEN PT READY. PT DENIED FURTHER NEEDS. RESTING QUIETLY AT THIS TIME. CALL LT IN REACH.
[2022-08-05 07:18] LABS: International Normalized Ratio 2.32; Prothrombin Time Results 23.1 Sec (9.7-11.5)
--- NOTE | 2022-08-05 08:02 | NUR ---
SEE DOWNTIME CHARTING FOR NOTES FOR 08/05/22 FROM 0045 TO 0612
--- NOTE | 2022-08-05 18:58 | NUR ---
SUMMARY- PT A/O X3-4. FORGETFUL. CONT WITH L DEFICITS. UP IN CHAIR WITH LIFT. AND GOT UP TO BSC WITH LIFT AND 3 PERSON ASSIST THEN STANDING. TOLERATING FOOD AND FLUID. INCONT BLADDER RELATED TO URGE INCONT. HAD BM TODAY ON BSC BUT INCONT OF HALF RELATED TO URGENCY. REPORTS PAIN IN POST NECK/HEAD RELEIVED WITH TYLENOL. AWAITING INSURANCE BEFORE PT SUITABLE FOR IRU IN [place]. WILL REPORT TO VALE BROWN.
--- NOTE | 2022-08-06 04:43 | NUR ---
ALERT AND ORIENTED X3-4, SOMETIMES FORGETFUL UP TO CHAIR AND BSC WITH 3 PERSON AND LIFT ASSIST, RETURNED TO BED WITH OVERHEAD LIFT. INCONTITENT OF BLADDER DUE TO URGENCY, HEADAHCE AND NECK PAIN RELEAVED WITH PRN TYLENOL, WAITING TO TXFR TO IRU IN [place] AFTER INSURANCE ISSUES.
[2022-08-06 05:03] LABS: International Normalized Ratio 2.54; Prothrombin Time Results 25.1 Sec (9.7-11.5)
--- NOTE | 2022-08-06 08:00 | NUR ---
pt laying in bed awake a/ox3, pleasant and cooperative with care, follows commands well, denies pain, lungs are clear in upper colunga, dim in bases, resp even and unlbored, no cough noted, hrr, edema noted to b/l le, ppp faint, cap refill <3sec, vs stable, afebrile, iv site to lfa, site is clear and patent, infusing 1/2 ns at 50mls/hr, btx4, abd flat soft nontender, incont of urine, has briefs and condom cath in place draining yellow urine, skin c/w/d, left ue has gross motor movement, unable to move left leg, is a lift to transfer him, can make his needs known and swallow po meds with water, call light in reach.
--- NOTE | 2022-08-06 18:44 | NUR ---
pt was up to chair via lift, back to bed after a few hrs, spouce in to see him today, no acute changes this shift. call light in reach.
--- NOTE | 2022-08-07 04:06 | NUR ---
A&O, PLEASATNT AND COOPERATIVE, CONTINUE COMPLAINT OF HEAD AND NECK PAIN WITH PRN TYLENOL NEEDED, PREFERRING TO USE CONDOM CATH FOR URGE INCONTIENCE, IV RUNNING ORDERED WITHOUT ISSUE
[2022-08-07 04:47] LABS: BASOPHILS ABSOLUTE AUTO 0.04 K/mm3 (0.00-0.23); BASOPHILS PERCENT AUTO 1 % (0-2); EOSINOPHILS ABSOLUTE AUTO 0.23 K/mm3 (0.00-0.68); EOSINOPHILS PERCENT AUTO 3 % (0-6); Hematocrit 35.5 % (37.0-53.0); Hemoglobin 11.8 g/dL (13.5-17.5); IMMATURE GRAN ABSOLUTE AUTO 0.02 K/mm3 (0.00-0.10); IMMATURE GRAN PERCENT AUTO 0 % (0-1); LYMPHOCYTES ABSOLUTE AUTO 1.15 K/mm3 (0.84-5.20); LYMPHOCYTES PERCENT AUTO 16 % (21-46); MONOCYTES ABSOLUTE AUTO 0.89 K/mm3 (0.16-1.47); MONOCYTES PERCENT AUTO 12 % (4-13); Mean Corpuscular HGB 30.2 pg (26.0-34.0); Mean Corpuscular HGB Conc 33.2 g/dL (31.5-36.5); Mean Corpuscular Volume 91 fL (80-100); Mean Platelet Volume 10.2 fL (9.1-12.4); NEUTROPHILS ABSOLUTE AUTO 4.86 K/mm3 (1.96-9.15); NEUTROPHILS PERCENT AUTO 68 % (41-73); Platelet Count 250 K/mm3 (150-400); RDW Coefficient Variation 11.9 % (11.7-14.2); RDW Standard Deviation 39.5 fL (35.1-46.3); Red Blood Cell Count 3.91 M/mm3 (4.30-5.90); White Blood Cell Count 7.19 K/mm3 (4.00-11.30)
[2022-08-07 05:02] LABS: International Normalized Ratio 2.87; Prothrombin Time Results 28.1 Sec (9.7-11.5)
[2022-08-07 05:09] LABS: Albumin, Blood 2.4 g/dL (3.4-5.0); Albumin/Globulin Ratio 0.5 (0.8-1.8); Bilirubin, Total 0.5 mg/dL (0.1-1.0); Bun/Creatinine Ratio 29.2 (12.0-20.0); Calcium, Blood 8.9 mg/dL (8.5-10.1); Creatinine, Blood 1.61 mg/dL (0.60-1.20); Globulin, Blood 4.4 g/dL (2.2-4.0); Potassium, Blood 4.6 mmol/L (3.5-5.5); Total Protein, Blood 6.8 g/dL (6.4-8.2)
[2022-08-07 19:30] LABS: Influenza A, PCR NEGATIVE (NEGATIVE); Influenza B, PCR NEGATIVE (NEGATIVE); Resp Syncytial Virus, PCR NEGATIVE (NEGATIVE); SARS-Cov-2 (COVID-19) PCR, MMC NEGATIVE (NEGATIVE)
--- NOTE | 2022-08-07 19:43 | NUR ---
SUMMARY- PT A/O X3-4. CONT WITH L FACIAL DROOP AND SLOW, SLIGHTLY SLURRED SPEECH. TOLERATING FOOD AND FLUIDS, CLEAR LIQ, PILLS WHOLE WITH WATER. UP TO CHAIR WITH PT/OT, GAIT BELT AND WALKER. STRONG LEAN TO THE LEFT WHEN STANDING. 2 MAX PIVOT TX BACK TO BED. INCONT B/B RELATED TO URGE INCONT. PAIN IN NECK CONTROLLED WITH TYLENOL PRN. HAD BED BATH TODAY AND LINEN CHANGE. CALAZYME TO EXCORIATION GLUTEAL AREA. MICONAZOLE TO GROIN REDNESS. IN TO VISIT A FEW HOURS TODAY. PLAN FOR [place] TOMORROW. COVID SWAB SENT.
--- NOTE | 2022-08-08 05:26 | NUR ---
POSTDOCTORAL RESEARCH FELLOW SUMMARY PT RESTING IN BED T/O THE NIGHT. NO ACUTE CHANGES. PT IS CONTINUING TO URINARY URGENCY/INCONTINENCE. APPLIED CONDOM CATH DURING THE EVENING AND IT CAME OFF WHEN PT VOIDED. PT USING THE CALL LIGHT WHEN HE HAS THE URGE TO PEE; NEEDS ASSIST W/URINAL. A/OX 3-4. PT ON CPAP T/O THE NIGHT. CALL LIGHT IN REACH.
[2022-08-08 05:52] LABS: International Normalized Ratio 2.88; Prothrombin Time Results 28.2 Sec (9.7-11.5)
[2022-08-08] MEDS ORDERED: NIFE60ER PO (08:48)
[2022-08-08] MEDS ORDERED: GABA300 PO (08:49)
[2022-08-08] MEDS ORDERED: Crestor20 MG PO (08:49)
[2022-08-08] MEDS ORDERED: HUMALOG JU100 UNIT/2 SC (08:49)
--- NOTE | 2022-08-08 11:01 | NUR ---
dISCHARGE- PATIENT WAS DISCHARGED TO [facility] THIS MORNING. REPORT WAS CALLED TO JOVANI RN. THE PATIENT WAS PICKED UP BY THE TRANSPORT COMPANY. WAS PRESENT AND WAS GOING TO ALSO DRIVE TO [facility] WITH ALL OF THE PATIENTS BELONGINGS THAT HAD BEEN PACKED. PATIENT IS LOOKING FORWARD TO THERAPY TO GAIN STRENGTH FOR AMBULATION.
--- NOTE | 2022-08-08 12:44 | NUR ---
PATIENT WAS DISCHARGED TO HOME WITH HIS AND FAMILY. IV WAS REMOVED, TELE DISCONTINUES AND THE PATIENT WAS GIVEN ALL DISCHARGE INFORMATION INCLUDING RECOMMENDED FOLLOW UPS, EDUCATION AND COMMUNITY RESOURCES. HE WAS WHEELED TO THE DOOR BY [facility] STAFF AND TRANSPORTED TO HOME IN FAMILY VEHICLE.
== END 2022-08-08 10:33 | DRG 65 ==
LOC: ER 12:49 → MEDS 15:49
PROVIDERS: Emergency Medicine; Family Medicine; Hospitalist; ADMIT Internal Medicine
DX: I63.81 Other cerebral infarction due to occlusion or stenosis of small artery (principal); G81.94 Hemiplegia, unspecified affecting left nondominant side; N17.9 Acute kidney failure, unspecified; I50.32 Chronic diastolic (congestive) heart failure; I13.0 Hypertensive heart and chronic kidney disease with heart failure and stage 1 through stage 4 chronic kidney disease, or unspecified chronic kidney disease; Z66 Do not resuscitate; Z20.822 Contact with and (suspected) exposure to COVID-19; R29.707 NIHSS score 7; R29.810 Facial weakness; R47.81 Slurred speech; E11.40 Type 2 diabetes mellitus with diabetic neuropathy, unspecified; R79.1 Abnormal coagulation profile; I25.10 Atherosclerotic heart disease of native coronary artery without angina pectoris; N40.0 Benign prostatic hyperplasia without lower urinary tract symptoms; E78.00 Pure hypercholesterolemia, unspecified; H40.9 Unspecified glaucoma; E11.22 Type 2 diabetes mellitus with diabetic chronic kidney disease; I48.0 Paroxysmal atrial fibrillation; G89.29 Other chronic pain; M54.9 Dorsalgia, unspecified; M54.2 Cervicalgia; M25.512 Pain in left shoulder; E66.01 Morbid (severe) obesity due to excess calories; N18.30 Chronic kidney disease, stage 3 unspecified; G47.33 Obstructive sleep apnea (adult) (pediatric); E11.65 Type 2 diabetes mellitus with hyperglycemia; R47.1 Dysarthria and anarthria; Z96.652 Presence of left artificial knee joint; Z86.73 Personal history of transient ischemic attack (TIA), and cerebral infarction without residual deficits; Z95.5 Presence of coronary angioplasty implant and graft; Z87.891 Personal history of nicotine dependence; Z98.890 Other specified postprocedural states; Z88.0 Allergy status to penicillin; Z88.6 Allergy status to analgesic agent; Z88.8 Allergy status to other drugs, medicaments and biological substances; Z79.4 Long term (current) use of insulin; Z79.899 Other long term (current) drug therapy
CPT/HCPCS: 0241U; 36415; 70450; 70496; 70498; 73030; 80048; 80053; 80061; 80069; 82947; 83735; 84443; 85025; 85027; 85610; 92526; 92610; 93005; 93010; 94660; 94762; 96361; 96374-59; 97110; 97112; 97161; 97166; 97530; 97535; 99285-25; A9270; C8929; J0360; J1815; J3010; J7030; Q9957; Q9967

== ENCOUNTER → 2022-10-09 | Outpatient (CLI) | payer OTHER ==
[~2022-10-09] MED LIST changes: +Crestor20 MG PO; +FARXIGA10 MG PO; +GABA300 PO; +HUMALOG JU100 UNIT/2 SC; +INSULANI SC; +NIFE60ER PO; +SOAANZ20 M1 PO; +TRULICITY3 MG/0.5 M; +TRULICITY4.5 MG/0.5 SC
[2022-10-09 13:53] LABS: Source, Urine Voided
[2022-10-09 14:56] LABS: Appearance, Urine Clear (Clear); Bilirubin, Urine Neg (Neg); Blood, Urine Neg (Neg); Glucose Qualitative, Urine 3+ (Neg); Ketones, Urine Neg (Neg); Leukocyte Esterase, Urine Neg (Neg); Nitrite, Urine Neg (Neg); Protein, Urine 3+ (Neg); Urobilinogen, Urine NORM (Normal)
[2022-10-09 15:05] LABS: Color, Urine Pale Yellow (P-Yellow)
[2022-10-09 15:07] LABS: Bacteria Rare /hpf; Red Blood Cells, Urine 0-2 /hpf (0-2); Squamous Epithelial Cells Not Seen /hpf (Few); White Blood Cells, Urine 0-2 /hpf (0-5)
== END | disposition home or self-care (01) ==
LOC: LAB HH 13:51
PROVIDERS: Nurse Practitioner Family
DX: N39.0 Urinary tract infection, site not specified (principal)
CPT/HCPCS: 81001

== ENCOUNTER → 2022-10-13 | Outpatient (CLI) | payer OTHER ==
[2022-10-13 17:30] LABS: Albumin, Blood 3.2 g/dL (3.4-5.0); Albumin/Globulin Ratio 0.8 (0.8-1.8); Bilirubin, Total 0.3 mg/dL (0.1-1.0); Bun/Creatinine Ratio 18.3 (12.0-20.0); Calcium, Blood 8.9 mg/dL (8.5-10.1); Creatinine, Blood 1.69 mg/dL (0.60-1.20); Globulin, Blood 3.9 g/dL (2.2-4.0); Potassium, Blood 4.3 mmol/L (3.5-5.5); Total Protein, Blood 7.1 g/dL (6.4-8.2)
== END | disposition home or self-care (01) ==
LOC: LAB HH 14:00
PROVIDERS: Nurse Practitioner Family
DX: E11.9 Type 2 diabetes mellitus without complications (principal)
CPT/HCPCS: 80053; 83036

== ENCOUNTER → 2022-10-19 | Outpatient (CLI) | payer OTHER | LOC: LAB 17:35 → LAB SHORT 17:35 | DX: L02.93 Carbuncle, unspecified (principal) | CPT/HCPCS: 87070; 87077; 87147; 87186; 87205 ==

== ENCOUNTER 2023-01-04 17:34 | Observation (INO) | payer OTHER ==
[~2023-01-04] VITALS: Ht 175.3 cm; Wt 111.2 kg
[~2023-01-04 17:34] MED LIST changes: -Glucophage1000 MG PO; +METF500 PO
[2023-01-04 18:35] LABS: BASOPHILS ABSOLUTE AUTO 0.06 K/mm3 (0.00-0.23); BASOPHILS PERCENT AUTO 1 % (0-2); EOSINOPHILS ABSOLUTE AUTO 0.29 K/mm3 (0.00-0.68); EOSINOPHILS PERCENT AUTO 3 % (0-6); Hematocrit 37.6 % (37.0-53.0); Hemoglobin 12.5 g/dL (13.5-17.5); IMMATURE GRAN ABSOLUTE AUTO 0.03 K/mm3 (0.00-0.10); IMMATURE GRAN PERCENT AUTO 0 % (0-1); LYMPHOCYTES ABSOLUTE AUTO 1.07 K/mm3 (0.84-5.20); LYMPHOCYTES PERCENT AUTO 12 % (21-46); MONOCYTES ABSOLUTE AUTO 0.97 K/mm3 (0.16-1.47); MONOCYTES PERCENT AUTO 11 % (4-13); Mean Corpuscular HGB 30.4 pg (26.0-34.0); Mean Corpuscular HGB Conc 33.2 g/dL (31.5-36.5); Mean Corpuscular Volume 92 fL (80-100); Mean Platelet Volume 10.8 fL (9.1-12.4); NEUTROPHILS ABSOLUTE AUTO 6.48 K/mm3 (1.96-9.15); NEUTROPHILS PERCENT AUTO 73 % (41-73); Platelet Count 202 K/mm3 (150-400); RDW Standard Deviation 42.9 fL (35.1-46.3); Red Blood Cell Count 4.11 M/mm3 (4.30-5.90)
[2023-01-04 18:44] LABS: Albumin, Blood 3.8 g/dL (3.4-5.0); Bilirubin, Total 0.2 mg/dL (0.1-1.0); Bun/Creatinine Ratio 26.8 (12.0-20.0); Calcium, Blood 9.5 mg/dL (8.5-10.1); Creatinine, Blood 1.94 mg/dL (0.60-1.20); Globulin, Blood 3.8 g/dL (2.2-4.0); Magnesium, Blood 2.6 mg/dL (1.6-2.4); Potassium, Blood 4.8 mmol/L (3.5-5.5); Total Protein, Blood 7.6 g/dL (6.4-8.2)
[2023-01-04 20:10] LABS: Source, Urine Clean Catch
[2023-01-04 20:15] LABS: Appearance, Urine Clear (Clear); Bilirubin, Urine Neg (Neg); Blood, Urine Neg (Neg); Glucose Qualitative, Urine 1+ (Neg); Ketones, Urine Neg (Neg); Leukocyte Esterase, Urine Neg (Neg); Nitrite, Urine Neg (Neg); Protein, Urine 2+ (Neg); Specific Gravity, Urine 1.015 (1.003-1.022); Urobilinogen, Urine NORM (Normal)
[2023-01-04 20:22] LABS: Color, Urine Pale Yellow (P-Yellow)
[2023-01-04 20:23] LABS: Bacteria Mod /hpf; Mucus Light (0-Heavy); Red Blood Cells, Urine 0-2 /hpf (0-2); Squamous Epithelial Cells Rare /hpf (Few); White Blood Cells, Urine 0-2 /hpf (0-5)
--- NOTE | 2023-01-05 04:14 | NUR ---
SHIFT SUMMARY NOC ADMIT FROM ED WITH DX OF SYNCOPE EPISODES ONE OF WHICH HAPPENED IN ED PRIOR TO DC. PT ALSO HAS URINE CULTURE PENDING POSSIBLE UTI. 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 PT IS ON TELE RUNNING ATRIAL PM @ 78 BPM. PT IS ON CONTINUOS BIOX CURRENTLY BUT RT WILL DISCUSS ISSUE WITH PROVIDER IN AM FOR POSSIBLE DC. PT HAS L BIG TOE PARTIAL AMP FROM DM2 AND R FT MIDDLE TOES PARTIAL AMP FROM SAME. PT HAS ORTHOSTATIC BP ORDERED BUT PT UNABLE TO STAND CURRENTLY DUE TO DIZZYNESS AND WEAKNESS. PT HAD BRIEF EPISODE OF TALKTATIVE DYSPNA WHEN ANSWERING QUESTIONS ON ADMIT AND DESATED INTO MID 80'S. PT HAS ECHO SCHEDULED FOR AM 01/05/23. PT HAS BED ALARM ON TO LET STAFF KNOW IF PT WILL GET UP. PT USES CALL LIGHT APPROPRIATELY. PT IS CURRENTLY RESTING IN BED WITH BED IN LOWEST POSITION, AND CALL LIGHT WITHIN REACH. WCTM.
[2023-01-05 05:32] LABS: Bun/Creatinine Ratio 27.4 (12.0-20.0); Calcium, Blood 8.5 mg/dL (8.5-10.1); Creatinine, Blood 1.86 mg/dL (0.60-1.20); Potassium, Blood 4.4 mmol/L (3.5-5.5)
[2023-01-05] MEDS ORDERED: XARELTO20 MG PO (16:45)
[2023-01-05] MEDS ORDERED: ACET325 PO (16:45)
[2023-01-05] MEDS ORDERED: CITA20 PO (16:47)
--- NOTE | 2023-01-05 17:08 | NUR ---
SHIFT SUMMARY NO ACUTE CHANGES DURING SHIFT. PT ALERT AND ORIENTED, CALLS APPROPRIATELY. NS INFUSING @ 75ML/HR X 1 BAG. ECHO COMPLETED. PT EVAL COMPLETED, PT TO CHAIR THIS AFTERNOON. PT WITH DECREASED MOBILITY, EDUCATED ON IMPORTANCE OF GETTING OUT OF BED AND MOVING MUCH TOLERABLE. NO C/O PAIN. WILL CONTINUE TO MONITOR. CALL LIGHT WITHIN REACH.
--- NOTE | 2023-01-06 01:26 | NUR ---
PT STATUS INFORMED CHARGE OF RUN OF TRIGEMINY THAT OCCURRED ON PREVIOUS SHIFT. PT DENIES S/SX'S. NO EVENTS REPORTED OR RECORDED THIS SHIFT. VITALS ARE WNL. PT IS MONITORED BY TELEMETRY. WILL CONTINUE TO MONITOR. I WILL REPORT TO DAY RN.
--- NOTE | 2023-01-06 04:08 | NUR ---
SHIFT SUMMARY ADMITTED FOR SYNCOPE. DNR CODE. CONTACT PRECAUTIONS FOR MRSA IN WOUND. PLAN WILL BE TO DC HOME WHEN STABLE. ACHS CBG'S, MED SS. TELEMETRY: NSR @ 84 BPM, SEE PREVIOUS NOTE. 2 ASSIST W/GB & FWW - BSC. VA PT. HE IS ON XARELTO. ADA DIET. TOE AMPUTATIONS ON BLE. LEFT SIDE HEMATOMA FROM FALL. HE IS A&O X4. LEFT SIDED WEAKNESS FROM RECENT CVA.
[2023-01-06 05:19] LABS: Albumin, Blood 2.8 g/dL (3.4-5.0); Anion Gap 4 mmol/L (6-16); Blood Urea Nitrogen 46 mg/dL (8-24); Bun/Creatinine Ratio 25.1 (12.0-20.0); CO2, Blood 21 mmol/L (21-32); Calcium, Blood 8.7 mg/dL (8.5-10.1); Chloride, Blood 110 mmol/L (98-108); Creatinine, Blood 1.83 mg/dL (0.60-1.20); Glomerular Filtration Rate 38 (60-); Glucose, Blood 146 mg/dL (70-99); Phosphorus, Blood 3.9 mg/dL (2.5-4.9); Potassium, Blood 4.7 mmol/L (3.5-5.5); Sodium, Blood 135 mmol/L (136-145)
== END 2023-01-06 15:35 | disposition home or self-care (01) ==
LOC: ER 17:34 → MEDS 17:35
PROVIDERS: Emergency Medicine; Family Medicine; Student in an Organized Health Care Education/Training Program; ADMIT Internal Medicine
DX: N17.9 Acute kidney failure, unspecified (principal); E11.9 Type 2 diabetes mellitus without complications; I48.0 Paroxysmal atrial fibrillation; Z79.01 Long term (current) use of anticoagulants; I25.10 Atherosclerotic heart disease of native coronary artery without angina pectoris; G47.33 Obstructive sleep apnea (adult) (pediatric); Z87.891 Personal history of nicotine dependence; Z96.652 Presence of left artificial knee joint; Z95.5 Presence of coronary angioplasty implant and graft; Z88.0 Allergy status to penicillin; Z88.5 Allergy status to narcotic agent; Z88.8 Allergy status to other drugs, medicaments and biological substances; E11.22 Type 2 diabetes mellitus with diabetic chronic kidney disease; R55 Syncope and collapse; E66.9 Obesity, unspecified; Z79.4 Long term (current) use of insulin; Z79.84 Long term (current) use of oral hypoglycemic drugs; N18.30 Chronic kidney disease, stage 3 unspecified; I50.30 Unspecified diastolic (congestive) heart failure; I13.0 Hypertensive heart and chronic kidney disease with heart failure and stage 1 through stage 4 chronic kidney disease, or unspecified chronic kidney disease; E11.40 Type 2 diabetes mellitus with diabetic neuropathy, unspecified; N40.0 Benign prostatic hyperplasia without lower urinary tract symptoms; I69.354 Hemiplegia and hemiparesis following cerebral infarction affecting left non-dominant side
CPT/HCPCS: 36415; 70450; 71250; 72125; 74176; 80048; 80053; 80069; 81001; 82947; 83735; 83880; 85025; 87086; 93005; 93010; 93308; 93321; 96360; 96361; 97110; 97116; 97162; 97166; 97530; 99285-25; A9270; G0378; J1815; J7030

== ENCOUNTER → 2023-01-29 | Outpatient (CLI) | payer OTHER ==
[~2023-01-29] MED LIST changes: +ACET325 PO; +CITA20 PO; -VITAMIN D5000 UNIT PO; +Vitamin D1000 UNI1 PO; +XARELTO20 MG PO
[2023-01-29 16:07] LABS: Creatinine, Urine Random 49.8 mg/dL (27.00-270.00)
[2023-01-29 16:33] LABS: Microalb/Creat Ratio UR, Rand 785.141 mg/g (0.000-30.000)
== END | disposition home or self-care (01) ==
LOC: LAB 09:00 → LAB SHORT 09:00
PROVIDERS: Nurse Practitioner Family
DX: E11.22 Type 2 diabetes mellitus with diabetic chronic kidney disease (principal); E11.42 Type 2 diabetes mellitus with diabetic polyneuropathy
CPT/HCPCS: 82043; 82570

== ENCOUNTER 2023-03-11 14:28 | Emergency (ER) | payer OTHER ==
[~2023-03-11] VITALS: Ht 172.7 cm; Wt 106.6 kg
[2023-03-11 14:40] VITALS: BP 133/83
[2023-03-11] MEDS ORDERED: Acetaminophen650 M1 PO (14:44)
[2023-03-11] MEDS ORDERED: FERSU300 PO (14:45)
[2023-03-11] MEDS ORDERED: FARXIGA10 MG PO (14:45)
[2023-03-11] MEDS ORDERED: Flonase 0.05% N16 GM (14:46)
[2023-03-11] MEDS ORDERED: GABA600 PO (14:47)
[2023-03-11] MEDS ORDERED: LOSA25 PO (14:48)
[2023-03-11] MEDS ORDERED: METF500 PO (14:48)
[2023-03-11] MEDS ORDERED: INSULANI SC (14:48)
[2023-03-11] MEDS ORDERED: Crestor20 MG PO (14:49)
[2023-03-11] MEDS ORDERED: TAMS.4ER PO (14:49)
[2023-03-11] MEDS ORDERED: TORSE20 PO (14:49)
[2023-03-11] MEDS ORDERED: TRAM50 PO (14:50)
[2023-03-11] MEDS ORDERED: TRULICITY0.75 MG/01 SC (14:51)
[2023-03-11] MEDS ORDERED: XYZAL5 MG PO (14:52)
[2023-03-11] MEDS ORDERED: XARELTO20 MG PO (14:52)
== END 2023-03-11 15:14 | disposition home or self-care (01) ==
LOC: ER 14:28
DX: S40.012A Contusion of left shoulder, initial encounter (principal); W18.30XA Fall on same level, unspecified, initial encounter; Z88.8 Allergy status to other drugs, medicaments and biological substances; Z88.5 Allergy status to narcotic agent; Z79.899 Other long term (current) drug therapy; E11.22 Type 2 diabetes mellitus with diabetic chronic kidney disease; I12.9 Hypertensive chronic kidney disease with stage 1 through stage 4 chronic kidney disease, or unspecified chronic kidney disease; I48.0 Paroxysmal atrial fibrillation; G47.33 Obstructive sleep apnea (adult) (pediatric); I25.10 Atherosclerotic heart disease of native coronary artery without angina pectoris; E78.5 Hyperlipidemia, unspecified; N18.9 Chronic kidney disease, unspecified; Z87.891 Personal history of nicotine dependence
CPT/HCPCS: 99283

== ENCOUNTER 2023-04-28 11:13 | Inpatient (IN) | payer OTHER ==
[~2023-04-28] VITALS: Ht 172.7 cm; Wt 102.8 kg
[~2023-04-28 11:13] MED LIST changes: +Acetaminophen650 M1 PO; +GABA600 PO; +LOSA25 PO; +TRULICITY0.75 MG/01 SC
[2023-04-28 11:55] LABS: BASOPHILS ABSOLUTE AUTO 0.03 K/mm3 (0.00-0.23); BASOPHILS PERCENT AUTO 1 % (0-2); EOSINOPHILS ABSOLUTE AUTO 0.12 K/mm3 (0.00-0.68); EOSINOPHILS PERCENT AUTO 2 % (0-6); Hematocrit 39.3 % (37.0-53.0); Hemoglobin 12.8 g/dL (13.5-17.5); IMMATURE GRAN ABSOLUTE AUTO 0.01 K/mm3 (0.00-0.10); IMMATURE GRAN PERCENT AUTO 0 % (0-1); LYMPHOCYTES PERCENT AUTO 16 % (21-46); MONOCYTES ABSOLUTE AUTO 0.82 K/mm3 (0.16-1.47); MONOCYTES PERCENT AUTO 13 % (4-13); Mean Corpuscular HGB 30.6 pg (26.0-34.0); Mean Corpuscular HGB Conc 32.6 g/dL (31.5-36.5); Mean Corpuscular Volume 94 fL (80-100); Mean Platelet Volume 10.5 fL (9.1-12.4); NEUTROPHILS PERCENT AUTO 68 % (41-73); Platelet Count 156 K/mm3 (150-400); RDW Coefficient Variation 12.7 % (11.7-14.2); RDW Standard Deviation 44.1 fL (35.1-46.3); Red Blood Cell Count 4.18 M/mm3 (4.30-5.90); White Blood Cell Count 6.28 K/mm3 (4.00-11.30)
[2023-04-28 12:19] LABS: Albumin, Blood 3.3 g/dL (3.4-5.0); Bilirubin, Total 0.2 mg/dL (0.1-1.0); Bun/Creatinine Ratio 27.7 (12.0-20.0); Calcium, Blood 9.2 mg/dL (8.5-10.1); Creatinine, Blood 1.73 mg/dL (0.60-1.20); Globulin, Blood 3.4 g/dL (2.2-4.0); Potassium, Blood 4.7 mmol/L (3.5-5.5); Total Protein, Blood 6.7 g/dL (6.4-8.2)
[2023-04-28] MEDS ORDERED: ESCI20 PO ×2 (12:24→14:27)
[2023-04-28] MEDS ORDERED: DORZOPSO BOTHEYES (12:24)
[2023-04-28] MEDS ORDERED: FARXIGA10 MG PO (12:25)
[2023-04-28] MEDS ORDERED: METO25ER PO (12:27)
[2023-04-28] MEDS ORDERED: NOVOLOG FL100 UNIT/3 SQ (12:28)
[2023-04-28] MEDS ORDERED: GEMTESA75 MG PO (14:28)
[2023-04-28 15:56] VITALS: BP 156/88
--- NOTE | 2023-04-28 18:15 | NUR ---
HOME MEDICATION ASKED FAMILY TO BRING IN HOME MEDICATION INTHE MORNING. CONTINUE POC.
[2023-04-28 19:37] VITALS: BP 145/86
--- NOTE | 2023-04-29 04:45 | NUR ---
SHIFT SUMMARY ADMIT FOR SMALL VESSEL CVA. LEFT AFFECT/WEAKNESS. PT ON BEDREST. URINAL WITH RIGHT HAND. Q4 NEURO CHECKS. CONSULT WITH PT/OT/ST IN AM. PT HAD 337 CBG. STARTED SHIFT WITH SEVERE LEFT SIDED WEAKNESS. THROUGHOUT SHIFT, LEFT FOOT BEGAN TO GET STRONGER. LEFT HAND HAD BETTER SHELL MOLD BONDER. LEFT PUPIL WENT FROM NONRESPONSIVE TO BRISK RESPONSE. PT SPEECH IMPROVED AND AWARENESS INCREASED. PT SLEPT WELL THROUGH NIGHT. CALM AND PLEASANT.
[2023-04-29 04:52] VITALS: BP 144/89
[2023-04-29 05:22] LABS: BASOPHILS ABSOLUTE AUTO 0.04 K/mm3 (0.00-0.23); BASOPHILS PERCENT AUTO 1 % (0-2); EOSINOPHILS ABSOLUTE AUTO 0.14 K/mm3 (0.00-0.68); EOSINOPHILS PERCENT AUTO 2 % (0-6); Hematocrit 40.1 % (37.0-53.0); Hemoglobin 13.3 g/dL (13.5-17.5); IMMATURE GRAN ABSOLUTE AUTO 0.02 K/mm3 (0.00-0.10); IMMATURE GRAN PERCENT AUTO 0 % (0-1); LYMPHOCYTES ABSOLUTE AUTO 1.35 K/mm3 (0.84-5.20); LYMPHOCYTES PERCENT AUTO 20 % (21-46); MONOCYTES ABSOLUTE AUTO 0.94 K/mm3 (0.16-1.47); MONOCYTES PERCENT AUTO 14 % (4-13); Mean Corpuscular HGB 30.6 pg (26.0-34.0); Mean Corpuscular HGB Conc 33.2 g/dL (31.5-36.5); Mean Corpuscular Volume 92 fL (80-100); Mean Platelet Volume 10.5 fL (9.1-12.4); NEUTROPHILS ABSOLUTE AUTO 4.29 K/mm3 (1.96-9.15); NEUTROPHILS PERCENT AUTO 63 % (41-73); Platelet Count 166 K/mm3 (150-400); RDW Coefficient Variation 12.5 % (11.7-14.2); RDW Standard Deviation 42.8 fL (35.1-46.3); Red Blood Cell Count 4.34 M/mm3 (4.30-5.90); White Blood Cell Count 6.78 K/mm3 (4.00-11.30)
[2023-04-29 06:00] LABS: Albumin, Blood 3.2 g/dL (3.4-5.0); Albumin/Globulin Ratio 0.9 (0.8-1.8); Bilirubin, Total 0.3 mg/dL (0.1-1.0); Bun/Creatinine Ratio 25.7 (12.0-20.0); Calcium, Blood 9.2 mg/dL (8.5-10.1); Creatinine, Blood 1.44 mg/dL (0.60-1.20); Globulin, Blood 3.6 g/dL (2.2-4.0); Total Protein, Blood 6.8 g/dL (6.4-8.2)
[2023-04-29 07:26] VITALS: BP 165/87
[2023-04-29 15:50] VITALS: BP 122/87
--- NOTE | 2023-04-29 17:14 | NUR ---
ALERT AND ORIENTED, MAKES NEEDS KNOWN, ST/OT/PT WORKED WITH PATIENT TODAY, AT BEDSIDE HELPFUL WITH CARE, RECOMMENDATIONS FOR REHAB, PATIENT REPORTS HE HAS BEEN IN REHAB PREVIOUSLY, NO ACUTE CHANGES, CALL LIGHT WITH IN REACH, WILL RELAY TO PM RN
[2023-04-29 20:10] VITALS: BP 155/83
[2023-04-30 03:27] VITALS: BP 144/80
--- NOTE | 2023-04-30 05:03 | NUR ---
SHIFT SUMMARY; NO ACUTE CHANGES OVERNIGHT. THE PT IS AXO X3-4 W/ OCCASIONAL PERIODS OF WORD SALAD. THE PT IS AWARE OF HIS LIMITATIONS. THE PT STILL HAS L SIDED WEAKNESS, NO CHANGE REGARDING NEURO STATUS LAST NIGHT. THE PT DENIES ANY SOB, CHEST PAIN/PRESSURE OR N/V THIS SHIFT. THE PT HAS BEEN SLEEPING IN BED FOR THE ENTIRETY OF THE NIGHT. CURRENTLY THE PT IS SLEEPING IN BED WITH THE BED IN THE LOWEST POSITION AND THE CALL LIGHT AT BEDSIDE.
[2023-04-30 07:28] VITALS: BP 156/88
[2023-04-30] MEDS ORDERED: DOCU100 PO (10:09)
[2023-04-30] MEDS ORDERED: FAMO20 PO (10:10)
[2023-04-30 11:56] LABS: Influenza A, PCR NEGATIVE (NEGATIVE); Influenza B, PCR NEGATIVE (NEGATIVE); Resp Syncytial Virus, PCR NEGATIVE (NEGATIVE); SARS-Cov-2 (COVID-19) PCR, MMC NEGATIVE (NEGATIVE)
--- NOTE | 2023-04-30 13:40 | NUR ---
POSSIBLE DISCHARGE TO REHAB FACILITY TODAY, AT BEDSIDE, NO WORSENING OR IMPROVEMENT IN THE LEFT SIDE DEFICIT, CALL LIGHT WITH IN REACH
[2023-04-30 14:53] VITALS: BP 93/54
--- NOTE | 2023-04-30 14:54 | NUR ---
PATEINT MUCH MORE CONFUSED, UNABLE TO FORM WORDS, DEOS NOT RECOGNIZE HIS , UNABLE TO FOLLOW DIRECTION
[2023-04-30 15:38] LABS: Source, Urine Foley catheter
[2023-04-30 15:42] LABS: Appearance, Urine Clear (Clear); Bilirubin, Urine Neg (Neg); Blood, Urine Neg (Neg); Glucose Qualitative, Urine 3+ (Neg); Ketones, Urine Neg (Neg); Leukocyte Esterase, Urine Neg (Neg); Nitrite, Urine Neg (Neg); Protein, Urine 3+ (Neg); Urobilinogen, Urine NORM (Normal)
[2023-04-30 15:48] LABS: Color, Urine Pale Yellow (P-Yellow)
[2023-04-30 15:49] LABS: Bacteria Rare /hpf; Red Blood Cells, Urine 0-2 /hpf (0-2); Squamous Epithelial Cells Not Seen /hpf (Few); White Blood Cells, Urine 0-2 /hpf (0-5)
[2023-04-30 16:01] VITALS: BP 93/45
--- NOTE | 2023-04-30 16:22 | NUR ---
PATIENT NOT OREINTED, DISCHARGED ON HOLD FOR THE MENTATION CHANGES, SBP 90S, NS BOLUS INFUSING, ARAUJO PLACED, AT BEDSIDE, DR VASQUEZ CAME IN AND EVALUATED TO CHANGES, PATIENT WAS UNABLE TO FOLLOW OR RECOGNIZE HIS . SBP NOW AT95, WILL RECHECK IN 1 HOUR, CALL LIGHT WITH IN REACH
[2023-04-30 17:00] VITALS: BP 115/69
[2023-04-30 19:14] VITALS: BP 101/70
--- NOTE | 2023-05-01 04:13 | NUR ---
SHIFT SUMMARY THIS STUDENT NURSE ADDRESSED THE PT'S CVA THROUGH Q4 NEURO CHECKS, ASSESSING AND MONITORING VITALS SIGNS, AND ADMINISTERING PRESCRIBED MEDICATIONS. THE PT WAS A&O X2-3 DURING MY SHIFT. HE WAS ORIENTED TO PERSON, SITUATION, AND SOMETIMES PLACE. HE KNEW THE DATE HE RECOGNIZED THE ABILITY TO LOCATE THE DATE ON THE WHITEBOARD TO FIND THE INFORMATION. PT ON CPAP DURING HS. PT VSS. PT FAMILY AT BEDSIDE UNTIL AROUND 2100. PT REMAINED IN A POSITION OF COMFORT WITH TWO BED RAILS UP, BED IN LOW POSITION, BREAKS LOCKED, ROOM CLEAR OF DEBRIS, NONSKID SOCKS IN PLACE, AND CALL LIGHT WITHIN REACH. WILL CONTINUE TO MONITOR THROUGHOUT MY SHIFT.
[2023-05-01 04:49] VITALS: BP 126/68
--- NOTE | 2023-05-01 04:50 | NUR ---
I HAVE OBSERVED STUDENTS INTERACTIONS/PT CARE AND HER DOCUMENTATION, I AGREE WITH THE ABOVE.
[2023-05-01 05:08] LABS: BASOPHILS ABSOLUTE AUTO 0.04 K/mm3 (0.00-0.23); BASOPHILS PERCENT AUTO 0 % (0-2); EOSINOPHILS ABSOLUTE AUTO 0.25 K/mm3 (0.00-0.68); EOSINOPHILS PERCENT AUTO 3 % (0-6); Hematocrit 39.2 % (37.0-53.0); Hemoglobin 12.9 g/dL (13.5-17.5); IMMATURE GRAN ABSOLUTE AUTO 0.04 K/mm3 (0.00-0.10); IMMATURE GRAN PERCENT AUTO 0 % (0-1); LYMPHOCYTES PERCENT AUTO 12 % (21-46); MONOCYTES ABSOLUTE AUTO 1.35 K/mm3 (0.16-1.47); MONOCYTES PERCENT AUTO 13 % (4-13); Mean Corpuscular HGB 30.9 pg (26.0-34.0); Mean Corpuscular HGB Conc 32.9 g/dL (31.5-36.5); Mean Corpuscular Volume 94 fL (80-100); Mean Platelet Volume 10.7 fL (9.1-12.4); NEUTROPHILS ABSOLUTE AUTO 7.28 K/mm3 (1.96-9.15); NEUTROPHILS PERCENT AUTO 72 % (41-73); Platelet Count 155 K/mm3 (150-400); RDW Coefficient Variation 12.9 % (11.7-14.2); Red Blood Cell Count 4.18 M/mm3 (4.30-5.90); White Blood Cell Count 10.16 K/mm3 (4.00-11.30)
[2023-05-01 05:55] LABS: Bun/Creatinine Ratio 20.7 (12.0-20.0); Calcium, Blood 9.3 mg/dL (8.5-10.1); Creatinine, Blood 2.08 mg/dL (0.60-1.20); Potassium, Blood 4.3 mmol/L (3.5-5.5)
[2023-05-01 07:37] VITALS: BP 130/72
--- NOTE | 2023-05-01 15:13 | NUR ---
DC TO [facility] PT TO [facility] VIA GURNEY TRANSPORT. PIV DC'D WITH CATH TIP INTACT, NO REDNESS OR SWELLING NOTED. STEWARD/STEWARDESS BATH NOTIFIED OF PT'S DC. TELE DC'D. F/C REMAINS FOR TRANSFER. F/C INTACT & PATENT, DRAINING CLEAR YELLOW URINE. PT TRANSPORTED WITH ALL PERSONAL BELONGINGS. PT'S TRANSPORTING PT'S OWN CPAP MACHINE TO [facility]. DC PKT GIVEN TO TRANSPORT PERSONNAL. REPORT CALLED TO [facility] RECEIVING RN.
== END 2023-05-01 15:20 | DRG 65 ==
LOC: ER 11:13 → MEDS 13:45 → ENPENDDIS 04-30 09:00 → MEDS 05-01 15:20
PROVIDERS: Emergency Medicine; Family Medicine; ADMIT Family Medicine
PROC: 0T9B70Z Drainage of Bladder with Drainage Device, Via Natural or Artificial Opening (ICD-10-PCS; principal; 2023-04-28)
DX: I63.89 Other cerebral infarction (principal); G81.94 Hemiplegia, unspecified affecting left nondominant side; I50.30 Unspecified diastolic (congestive) heart failure; I13.0 Hypertensive heart and chronic kidney disease with heart failure and stage 1 through stage 4 chronic kidney disease, or unspecified chronic kidney disease; G93.49 Other encephalopathy; R29.810 Facial weakness; R47.1 Dysarthria and anarthria; N18.30 Chronic kidney disease, stage 3 unspecified; Z66 Do not resuscitate; I48.0 Paroxysmal atrial fibrillation; I25.10 Atherosclerotic heart disease of native coronary artery without angina pectoris; E11.42 Type 2 diabetes mellitus with diabetic polyneuropathy; G47.33 Obstructive sleep apnea (adult) (pediatric); N40.1 Benign prostatic hyperplasia with lower urinary tract symptoms; R33.8 Other retention of urine; I95.9 Hypotension, unspecified; I44.0 Atrioventricular block, first degree; E11.22 Type 2 diabetes mellitus with diabetic chronic kidney disease; M54.50 Low back pain, unspecified; G89.29 Other chronic pain; M54.2 Cervicalgia; E78.5 Hyperlipidemia, unspecified; R29.708 NIHSS score 8; M21.372 Foot drop, left foot; H40.9 Unspecified glaucoma; I49.1 Atrial premature depolarization; Z20.822 Contact with and (suspected) exposure to COVID-19; Z88.8 Allergy status to other drugs, medicaments and biological substances; Z88.5 Allergy status to narcotic agent; Z79.899 Other long term (current) drug therapy; Z79.01 Long term (current) use of anticoagulants; Z79.52 Long term (current) use of systemic steroids; Z79.4 Long term (current) use of insulin; Z79.84 Long term (current) use of oral hypoglycemic drugs; Z79.891 Long term (current) use of opiate analgesic; Z86.73 Personal history of transient ischemic attack (TIA), and cerebral infarction without residual deficits; Z98.1 Arthrodesis status; Z98.890 Other specified postprocedural states; Z95.5 Presence of coronary angioplasty implant and graft; Z87.891 Personal history of nicotine dependence; Z86.718 Personal history of other venous thrombosis and embolism
CPT/HCPCS: 0241U; 36415; 70450; 70496; 70498; 71046; 80048; 80053; 81001; 82947; 84484; 85025; 85730; 92507; 92523; 92610; 93005; 93010; 94762; 97110; 97112; 97162; 97166; 97530; 99285-25; A9270; J1815; J7030; Q9967

== ENCOUNTER → 2023-08-12 | Outpatient (CLI) | payer OTHER ==
[~2023-08-12] MED LIST changes: +DOCU100 PO; +ESCI20 PO; +FAMO20 PO; +GEMTESA75 MG PO; +NOVOLOG FL100 UNIT/3 SQ
[2023-08-12 19:57] LABS: Appearance, Urine Clear (Clear); Bilirubin, Urine Neg (Neg); Blood, Urine Neg (Neg); Glucose Qualitative, Urine 3+ (Neg); Ketones, Urine Neg (Neg); Leukocyte Esterase, Urine Neg (Neg); Nitrite, Urine Neg (Neg); Protein, Urine 2+ (Neg); Specific Gravity, Urine 1.015 (1.003-1.022); Urobilinogen, Urine NORM (Normal)
[2023-08-12 20:09] LABS: Color, Urine Pale Yellow (P-Yellow)
[2023-08-12 20:10] LABS: Bacteria Few /hpf; Red Blood Cells, Urine 0-2 /hpf (0-2); Squamous Epithelial Cells Rare /hpf (Few); White Blood Cells, Urine 0-2 /hpf (0-5)
== END | disposition home or self-care (01) ==
LOC: LAB SHORT 19:06 → LAB 19:06
PROVIDERS: Nurse Practitioner Family
DX: N39.0 Urinary tract infection, site not specified (principal)
CPT/HCPCS: 81001

== ENCOUNTER → 2023-08-26 | Outpatient (CLI) | payer OTHER | LOC: LAB 14:10 → LAB SHORT 14:10 | PROVIDERS: Nurse Practitioner Family | DX: Z12.5 Encounter for screening for malignant neoplasm of prostate (principal) | CPT/HCPCS: G0103 ==

== ENCOUNTER → 2023-10-20 | Outpatient (CLI) | payer OTHER ==
[2023-10-20 18:30] LABS: BASOPHILS ABSOLUTE AUTO 0.05 K/mm3 (0.00-0.23); BASOPHILS PERCENT AUTO 1 % (0-2); EOSINOPHILS ABSOLUTE AUTO 0.33 K/mm3 (0.00-0.68); EOSINOPHILS PERCENT AUTO 4 % (0-6); Hematocrit 22.5 % (37.0-53.0); Hemoglobin 6.7 g/dL (13.5-17.5); IMMATURE GRAN ABSOLUTE AUTO 0.03 K/mm3 (0.00-0.10); IMMATURE GRAN PERCENT AUTO 0 % (0-1); LYMPHOCYTES ABSOLUTE AUTO 0.69 K/mm3 (0.84-5.20); LYMPHOCYTES PERCENT AUTO 8 % (21-46); MONOCYTES ABSOLUTE AUTO 0.95 K/mm3 (0.16-1.47); MONOCYTES PERCENT AUTO 11 % (4-13); Mean Corpuscular HGB 27.7 pg (26.0-34.0); Mean Corpuscular HGB Conc 29.8 g/dL (31.5-36.5); Mean Corpuscular Volume 93 fL (80-100); Mean Platelet Volume 10.9 fL (9.1-12.4); NEUTROPHILS ABSOLUTE AUTO 6.74 K/mm3 (1.96-9.15); NEUTROPHILS PERCENT AUTO 77 % (41-73); Platelet Count 294 K/mm3 (150-400); RDW Coefficient Variation 13.6 % (11.7-14.2); RDW Standard Deviation 46.4 fL (35.1-46.3); Red Blood Cell Count 2.42 M/mm3 (4.30-5.90); White Blood Cell Count 8.79 K/mm3 (4.00-11.30)
== END | disposition home or self-care (01) ==
LOC: LAB SHORT 14:10 → LAB 14:10
PROVIDERS: Nurse Practitioner Family
DX: E11.42 Type 2 diabetes mellitus with diabetic polyneuropathy (principal); D50.0 Iron deficiency anemia secondary to blood loss (chronic)
CPT/HCPCS: 83036; 85025

== ENCOUNTER 2023-10-26 11:35 | Emergency (ER) | payer OTHER ==
[~2023-10-26] VITALS: Ht 175.3 cm; Wt 91.6 kg
[2023-10-26 12:03] LABS: BASOPHILS ABSOLUTE AUTO 0.06 K/mm3 (0.00-0.23); BASOPHILS PERCENT AUTO 1 % (0-2); EOSINOPHILS ABSOLUTE AUTO 0.31 K/mm3 (0.00-0.68); EOSINOPHILS PERCENT AUTO 4 % (0-6); Hematocrit 22.2 % (37.0-53.0); Hemoglobin 6.7 g/dL (13.5-17.5); IMMATURE GRAN ABSOLUTE AUTO 0.01 K/mm3 (0.00-0.10); IMMATURE GRAN PERCENT AUTO 0 % (0-1); LYMPHOCYTES PERCENT AUTO 10 % (21-46); MONOCYTES ABSOLUTE AUTO 1.14 K/mm3 (0.16-1.47); MONOCYTES PERCENT AUTO 16 % (4-13); Mean Corpuscular HGB 27.5 pg (26.0-34.0); Mean Corpuscular HGB Conc 30.2 g/dL (31.5-36.5); Mean Corpuscular Volume 91 fL (80-100); Mean Platelet Volume 10.8 fL (9.1-12.4); NEUTROPHILS ABSOLUTE AUTO 4.89 K/mm3 (1.96-9.15); NEUTROPHILS PERCENT AUTO 69 % (41-73); Platelet Count 256 K/mm3 (150-400); RDW Coefficient Variation 14.3 % (11.7-14.2); RDW Standard Deviation 46.3 fL (35.1-46.3); Red Blood Cell Count 2.44 M/mm3 (4.30-5.90); White Blood Cell Count 7.11 K/mm3 (4.00-11.30)
[2023-10-26 12:17] LABS: Albumin/Globulin Ratio 0.8 (0.8-1.8); Bilirubin, Total 0.1 mg/dL (0.1-1.0); Calcium, Blood 10.9 mg/dL (8.5-10.1); Creatinine, Blood 1.14 mg/dL (0.60-1.20); Globulin, Blood 3.7 g/dL (2.2-4.0); Potassium, Blood 3.8 mmol/L (3.5-5.5); Total Protein, Blood 6.7 g/dL (6.4-8.2)
[2023-10-26 14:54] VITALS: BP 114/69
== END 2023-10-26 17:00 | disposition home or self-care (01) ==
LOC: ER 11:35
PROVIDERS: Family Medicine
DX: D64.9 Anemia, unspecified (principal); R19.5 Other fecal abnormalities; E11.9 Type 2 diabetes mellitus without complications; I10 Essential (primary) hypertension; Z86.73 Personal history of transient ischemic attack (TIA), and cerebral infarction without residual deficits; Z87.891 Personal history of nicotine dependence; Z88.5 Allergy status to narcotic agent; Z88.8 Allergy status to other drugs, medicaments and biological substances; Z88.1 Allergy status to other antibiotic agents; Z79.899 Other long term (current) drug therapy; Z79.4 Long term (current) use of insulin; Z79.01 Long term (current) use of anticoagulants; Z79.84 Long term (current) use of oral hypoglycemic drugs
CPT/HCPCS: 36430; 80053; 85025; 86850; 86900; 86901; 86923; 93005; 93010; 96374; 99284-25; C9113; J7030; P9016

== ENCOUNTER → 2023-11-25 | Outpatient (CLI) | payer OTHER ==
[2023-11-25 19:28] LABS: BASOPHILS ABSOLUTE AUTO 0.09 K/mm3 (0.00-0.23); BASOPHILS PERCENT AUTO 1 % (0-2); EOSINOPHILS ABSOLUTE AUTO 0.73 K/mm3 (0.00-0.68); EOSINOPHILS PERCENT AUTO 9 % (0-6); Hematocrit 24.3 % (37.0-53.0); Hemoglobin 7.3 g/dL (13.5-17.5); IMMATURE GRAN ABSOLUTE AUTO 0.06 K/mm3 (0.00-0.10); IMMATURE GRAN PERCENT AUTO 1 % (0-1); LYMPHOCYTES ABSOLUTE AUTO 0.82 K/mm3 (0.84-5.20); LYMPHOCYTES PERCENT AUTO 10 % (21-46); MONOCYTES PERCENT AUTO 15 % (4-13); Mean Corpuscular HGB 28.7 pg (26.0-34.0); Mean Corpuscular Volume 96 fL (80-100); Mean Platelet Volume 11.4 fL (9.1-12.4); NEUTROPHILS ABSOLUTE AUTO 5.33 K/mm3 (1.96-9.15); NEUTROPHILS PERCENT AUTO 65 % (41-73); Platelet Count 287 K/mm3 (150-400); RDW Standard Deviation 62.8 fL (35.1-46.3); Red Blood Cell Count 2.54 M/mm3 (4.30-5.90); White Blood Cell Count 8.23 K/mm3 (4.00-11.30)
[2023-11-25 20:56] LABS: Percent Saturation 12.4 % (20.0-50.0)
[2023-11-25 21:03] LABS: Albumin, Blood 2.4 g/dL (3.4-5.0); Albumin/Globulin Ratio 0.6 (0.8-1.8); Bilirubin, Total 0.2 mg/dL (0.1-1.0); Bun/Creatinine Ratio 27.5 (12.0-20.0); Calcium, Blood 9.7 mg/dL (8.5-10.1); Creatinine, Blood 1.38 mg/dL (0.60-1.20); Globulin, Blood 3.7 g/dL (2.2-4.0); Potassium, Blood 3.6 mmol/L (3.5-5.5); Total Protein, Blood 6.1 g/dL (6.4-8.2)
[2023-11-26 14:29] LABS: CHOL/HDL RATIO 3.8; Cholesterol 115 mg/dL (50-200); HDL Cholesterol 30 mg/dL (>39); LDL/HDL RATIO 1.9; Low Density Lipoprotein Chol 57 mg/dL (0-110); Triglycerides 139 mg/dL (30-160); Very Low Density Lipoprot Chol 27 mg/dL (6-32)
== END ==
LOC: LAB 18:24 → LAB SHORT 18:24
PROVIDERS: Nurse Practitioner Family
DX: E78.2 Mixed hyperlipidemia (principal); D50.9 Iron deficiency anemia, unspecified
CPT/HCPCS: 36415; 80053; 80061; 82728; 83540; 83550; 85025

== ENCOUNTER 2023-12-04 13:37 | Inpatient (IN) | payer OTHER ==
[~2023-12-04] VITALS: Ht 172.7 cm; Wt 83.0 kg
[2023-12-04 14:23] LABS: BASOPHILS ABSOLUTE AUTO 0.08 K/mm3 (0.00-0.23); BASOPHILS PERCENT AUTO 1 % (0-2); EOSINOPHILS ABSOLUTE AUTO 0.63 K/mm3 (0.00-0.68); EOSINOPHILS PERCENT AUTO 7 % (0-6); Hematocrit 23.7 % (37.0-53.0); Hemoglobin 7.1 g/dL (13.5-17.5); IMMATURE GRAN ABSOLUTE AUTO 0.05 K/mm3 (0.00-0.10); IMMATURE GRAN PERCENT AUTO 1 % (0-1); LYMPHOCYTES ABSOLUTE AUTO 0.76 K/mm3 (0.84-5.20); LYMPHOCYTES PERCENT AUTO 8 % (21-46); MONOCYTES ABSOLUTE AUTO 1.05 K/mm3 (0.16-1.47); MONOCYTES PERCENT AUTO 12 % (4-13); Mean Corpuscular HGB 29.1 pg (26.0-34.0); Mean Corpuscular Volume 97 fL (80-100); Mean Platelet Volume 10.5 fL (9.1-12.4); NEUTROPHILS ABSOLUTE AUTO 6.48 K/mm3 (1.96-9.15); NEUTROPHILS PERCENT AUTO 72 % (41-73); Platelet Count 334 K/mm3 (150-400); RDW Coefficient Variation 16.9 % (11.7-14.2); RDW Standard Deviation 59.3 fL (35.1-46.3); Red Blood Cell Count 2.44 M/mm3 (4.30-5.90); White Blood Cell Count 9.05 K/mm3 (4.00-11.30)
[2023-12-04 14:49] LABS: Albumin, Blood 2.3 g/dL (3.4-5.0); Albumin/Globulin Ratio 0.6 (0.8-1.8); Bilirubin, Total 0.1 mg/dL (0.1-1.0); Bun/Creatinine Ratio 26.1 (12.0-20.0); Calcium, Blood 9.4 mg/dL (8.5-10.1); Creatinine, Blood 1.34 mg/dL (0.60-1.20); Globulin, Blood 3.9 g/dL (2.2-4.0); Potassium, Blood 3.8 mmol/L (3.5-5.5); Total Protein, Blood 6.2 g/dL (6.4-8.2)
[2023-12-04 15:16] LABS: International Normalized Ratio 1.03; Prothrombin Time Results 10.8 Sec (9.7-11.5)
[2023-12-04 18:19] LABS: Hematocrit 24.2 % (37.0-53.0); Hemoglobin 7.3 g/dL (13.5-17.5)
[2023-12-04 18:24] VITALS: BP 132/70
[2023-12-04 19:30] VITALS: BP 129/76
[2023-12-04 20:37] VITALS: BP 134/68
[2023-12-04 21:13] VITALS: BP 139/86
[2023-12-04 22:12] VITALS: BP 123/92
[2023-12-04 23:15] VITALS: BP 148/73
[2023-12-05] VITALS (10 sets, daily range): BP systolic 111–160; BP diastolic 73–106
[2023-12-05 02:04] LABS: Hematocrit 30.9 % (37.0-53.0); Hemoglobin 9.7 g/dL (13.5-17.5)
[2023-12-05 05:18] LABS: BASOPHILS ABSOLUTE AUTO 0.09 K/mm3 (0.00-0.23); BASOPHILS PERCENT AUTO 1 % (0-2); EOSINOPHILS ABSOLUTE AUTO 0.72 K/mm3 (0.00-0.68); EOSINOPHILS PERCENT AUTO 6 % (0-6); Hematocrit 27.9 % (37.0-53.0); IMMATURE GRAN ABSOLUTE AUTO 0.07 K/mm3 (0.00-0.10); IMMATURE GRAN PERCENT AUTO 1 % (0-1); LYMPHOCYTES ABSOLUTE AUTO 0.96 K/mm3 (0.84-5.20); LYMPHOCYTES PERCENT AUTO 9 % (21-46); MONOCYTES ABSOLUTE AUTO 1.39 K/mm3 (0.16-1.47); MONOCYTES PERCENT AUTO 12 % (4-13); Mean Corpuscular HGB 29.9 pg (26.0-34.0); Mean Corpuscular HGB Conc 32.3 g/dL (31.5-36.5); Mean Corpuscular Volume 93 fL (80-100); Mean Platelet Volume 10.6 fL (9.1-12.4); NEUTROPHILS ABSOLUTE AUTO 8.12 K/mm3 (1.96-9.15); NEUTROPHILS PERCENT AUTO 72 % (41-73); Platelet Count 315 K/mm3 (150-400); RDW Coefficient Variation 16.4 % (11.7-14.2); RDW Standard Deviation 55.7 fL (35.1-46.3); Red Blood Cell Count 3.01 M/mm3 (4.30-5.90); White Blood Cell Count 11.35 K/mm3 (4.00-11.30)
--- NOTE | 2023-12-05 05:48 | NUR ---
END OF SHIFT NOTE: THIS RN ASSUMED CARE OF PT AT APPROX 1900. PT ALERT, LAYING IN BED. ABLE TO COMMUNICATE W/ STAFF, MAKE NEEDS KNOWN, & CALL APPROPRIATELY. MD GARCIA AT BEDSIDE AT START OF SHIFT, VERBALLY INFORMED THIS RN TO PERFORM BOWEL PREP T/O NIGHT & ADMINISTER TAP WATER ENEMA X2 AT 0700. ORDERS TO MAKE PT NPO AT 0700 ANTICIPATING SCOPE THIS AM. PRBC UNIT 2 ADMINISTERED THIS SHIFT, REPEAT HGB COMPLETED. HR 60-80'S, SINUS W/ 1ST DEGREE HB. BP STABLE, MAP >65. PT DENIES CHEST PAIN/PRESSURE. SPO2 >90% ON RA. AFEBRILE. RECTAL TUBE PLACED, BOWEL PREP COMPLETED. FREQUENT LINEN CHANGES W/ REPOSITIONING DUE TO RECTAL TUBE LEAKAGE. PT WITH HX OF CVA W/ LEFT SIDED DEFICIT. LEFT SIDED FACIAL DROOP PRESENT WELL. PT ABLE TO TOLERATE CLEAR LIQUID PREP WELL, DENIES N/V. C/O HEADACHE, MEDICATED W/ TYLENOL PER EMAR. THIS AM, THIS RN WAS CALLED TO PT'S ROOM BY OTHER STAFF W/ REPORTS OF NEW CONFUSION. THIS RN TO BEDSIDE. PT STATES THAT HE WOKE UP AND WAS UNSURE WHERE HE WAS OR WHY HE WAS HERE. ABLE TO STATE NAME, , DATE/TIME, AND PARTS OF CURRENT SITUATION. PT DID NOT RECALL TALKING W/ MD GARCIA AT START OF SHIFT OR RECEIVING BLOOD, BOTH OF WHICH HE HAD DISCUSSED W/ THIS RN PRIOR TO THIS TIME. CALL PLACED TO RESIDENT PHYSICIAN. ORDERS RECEIVED FOR CBC, CMP, MAG, AND PHOS LABS. PT WAS REORIENTED AND REMAINED ORIENTED AFTER. CBG CHECKED TO R/O HYPOGLYCEMIA, 89. AWAITING LAB RESULTS AT THIS TIME. PT IS CURRENTLY RESTING IN BED, CALL LIGHT WITHIN REACH. NO FURTHER NEEDS AT THIS TIME.
[2023-12-05 06:15] LABS: Magnesium, Blood 1.9 mg/dL (1.6-2.4)
[2023-12-05 06:34] LABS: Albumin, Blood 2.3 g/dL (3.4-5.0); Albumin/Globulin Ratio 0.6 (0.8-1.8); Bilirubin, Total 0.8 mg/dL (0.1-1.0); Bun/Creatinine Ratio 22.1 (12.0-20.0); Calcium, Blood 9.1 mg/dL (8.5-10.1); Creatinine, Blood 1.13 mg/dL (0.60-1.20); Globulin, Blood 3.9 g/dL (2.2-4.0); Phosphorus, Blood 2.2 mg/dL (2.5-4.9); Potassium, Blood 3.6 mmol/L (3.5-5.5); Total Protein, Blood 6.2 g/dL (6.4-8.2)
--- NOTE | 2023-12-05 06:50 | NUR ---
ENEMA 1/2 COMPLETE 900ML ENEMA COMPLETED VIA RECTAL TUBE AT APPROX 0645. STOOL STARTED LIQUID BROWN W/ PARTICLES & ENDED LIQUID YELLOW W/ BROWN PARTICLES. APPROX 900ML WATER USED. PT TOLERATED WELL W/O COMPLAINTS.
--- NOTE | 2023-12-05 09:45 | NUR ---
UPDATE PT TAKEN DOWN TO DAY SURGERY FOR SCOPE. WILL AWAIT RETURN. PT'S NOTIFIED AND SENT TO DAY SURGERY
--- NOTE | 2023-12-05 10:10 | NUR ---
12/05/[address] PIERRE; SEE ANESTHESIA RECORDS.
--- NOTE | 2023-12-05 12:03 | NUR ---
UPDATE PT RETURNED FROM DAY SURGERY. VS STABLE. PT AWAKE AND ALERT. PT DENIES ANY PAIN OR DISCOMFORT. PT TO REMAIN NPO UNTIL ABD ULTRASOUND IS COMPLETE. WILL CONTINUE TO MONTIOR CLOSELY
--- NOTE | 2023-12-05 17:20 | NUR ---
SHIFT SUMMARY PT REMAINS ALERT AND ORIENTED. BP STABLE. HR REMAINS STABLE. PT COMPLAINS OF MILD BACK AND NECK PAIN AT TIMES AND MEDICATED WITH SCHEDULED TYLENOL. PT HAS NOT HAD A BM SINCE RETURN FROM DAY SURGERY. PT HAD SOME URINARY RETENTION THIS AFTERNOON AND WAS STRAIGHT CATHED. PT REPOSITIONED Q2H. WOUNDS TO HEEL AND COCCYX CLEANED AND REDRESSED THIS SHIFT. WILL CONTINUE TO MONITOR AND REPORT TO ONCOMING STEPHANIE
--- NOTE | 2023-12-05 22:59 | NUR ---
ASSUMPTION OF CARE: PATIENT IS CURRENTLY RESTING WELL, ON CPAP CONTINUOUS PULSE OXIEMTRY IN PLACE. DENIES CHEST PAIN PRESSURE OR SOB AT REST. COOPERATIVE WITH CBG CONTROLLED AT THIS TIME. Q2 REPOSITIONS, HAD TO BE STRAIGHT CATHED BY DAY. PATIENT VOIDED 250 SO FAR FOR THIS RN. PATIENT DENIES PAIN AT THIS TIME, NOTHING ACUTE FOUND OF UPPER OR LOWER REPORTED DAY RN. NO CONCERNS FROM THIS RN AT THIS TIME, SYSTOLIC BLOOD PRESSURE MILDY INCREASED WITH MONITOR.
[2023-12-06 02:11] VITALS: BP 143/88
[2023-12-06 03:45] LABS: BASOPHILS ABSOLUTE AUTO 0.07 K/mm3 (0.00-0.23); BASOPHILS PERCENT AUTO 1 % (0-2); EOSINOPHILS ABSOLUTE AUTO 0.72 K/mm3 (0.00-0.68); EOSINOPHILS PERCENT AUTO 8 % (0-6); Hematocrit 30.2 % (37.0-53.0); Hemoglobin 9.5 g/dL (13.5-17.5); IMMATURE GRAN ABSOLUTE AUTO 0.05 K/mm3 (0.00-0.10); IMMATURE GRAN PERCENT AUTO 1 % (0-1); LYMPHOCYTES ABSOLUTE AUTO 0.98 K/mm3 (0.84-5.20); LYMPHOCYTES PERCENT AUTO 11 % (21-46); MONOCYTES ABSOLUTE AUTO 1.05 K/mm3 (0.16-1.47); MONOCYTES PERCENT AUTO 12 % (4-13); Mean Corpuscular HGB 29.3 pg (26.0-34.0); Mean Corpuscular HGB Conc 31.5 g/dL (31.5-36.5); Mean Corpuscular Volume 93 fL (80-100); Mean Platelet Volume 10.4 fL (9.1-12.4); NEUTROPHILS ABSOLUTE AUTO 6.23 K/mm3 (1.96-9.15); NEUTROPHILS PERCENT AUTO 69 % (41-73); Platelet Count 362 K/mm3 (150-400); RDW Standard Deviation 57.1 fL (35.1-46.3); Red Blood Cell Count 3.24 M/mm3 (4.30-5.90)
[2023-12-06 04:20] LABS: Albumin, Blood 2.5 g/dL (3.4-5.0); Albumin/Globulin Ratio 0.6 (0.8-1.8); Bilirubin, Total 0.3 mg/dL (0.1-1.0); Bun/Creatinine Ratio 14.8 (12.0-20.0); Calcium, Blood 9.6 mg/dL (8.5-10.1); Creatinine, Blood 1.28 mg/dL (0.60-1.20); Globulin, Blood 4.5 g/dL (2.2-4.0); Potassium, Blood 3.8 mmol/L (3.5-5.5)
[2023-12-06 05:00] VITALS: BP 137/89
--- NOTE | 2023-12-06 06:47 | NUR ---
EOS: PATIENT HAS BEEN PLEASANT COOPERATIVE ALERT AND ORIENTED. DID HAVE TRANSCIENT EPISODES OF ALTERED MENTATIONS WHICH WAS SIMILAR TO THE PREVIOUS NIGHT I WAS HERE, HOWEVER, REORIETNED WELL WITH NO LASTING CONFUSION, IS IMMEDIATELY UPON WAKING. DENIES CHEST PAIN PRESSURE OR SOB. DID HAVE SOME URINARY RETENTION WHICH DID REQUIRE A STRAIGHT CATH DUE TO BEING SYMPTOMATIC SHOWED 506, AND COULD NOT VOID. PATIENT AGREEABLE TO PLAN. POST VOID SCAN 200, PATIENT HAS BEEN SINUS TOUCHED THE UPPER 50'S WHILE SLEEPING. NO MAJOR CONCERNS FROM THIS RN.
[2023-12-06 07:49] VITALS: BP 167/89
[2023-12-06] MEDS ORDERED: PANT40 PO (10:18)
[2023-12-06] MEDS ORDERED: Aspir 8181 MG PO (10:19)
[2023-12-06 10:54] LABS: Source, Urine Foley catheter
[2023-12-06 11:06] LABS: Appearance, Urine Clear (Clear); Bilirubin, Urine Neg (Neg); Blood, Urine 4+ (Neg); Glucose Qualitative, Urine 4+ (Neg); Ketones, Urine Neg (Neg); Leukocyte Esterase, Urine Neg (Neg); Nitrite, Urine Neg (Neg); Protein, Urine 3+ (Neg); Urobilinogen, Urine NORM (Normal)
[2023-12-06 11:29] LABS: Color, Urine Pale Yellow (P-Yellow)
[2023-12-06 11:30] LABS: Bacteria Rare /hpf; Squamous Epithelial Cells Rare /hpf (Few); White Blood Cells, Urine 0-2 /hpf (0-5)
--- NOTE | 2023-12-06 12:51 | NUR ---
UPDATE DR. KESSLER IN THIS AM WITH PLANS FOR DISCHARGE AFTER ARAUJO PLACED. ARAUJO CATHETER PLACED AND TOLERATED WELL. DISCHARGE INSTRUCTIONS PROVIDED TO PT AND . PT EDUCATED ON NEW MEDICATIONS. ALL QUESTIONS ANSWERED. PT'S SPOUSE EDUCATED ON CATHETER CARE SHE IS THE PRIMARY CAREGIVER. HOME HEALTH ORDERED TO HELP MANAGE NEW CATHETER. PT'S WENT HOME TO CHIEF OF PLANNING PT'S WHEELCHAIR AND LIFT SLING. TRANSPORT TO COME AFTER RETURNS.
== END 2023-12-06 14:59 | disposition home health service (06) | DRG 812 ==
LOC: ER 13:37 → PCU 16:37
PROVIDERS: Family Medicine; Internal Medicine Gastroenterology; Student in an Organized Health Care Education/Training Program; ADMIT Internal Medicine
PROC: 30233N1 Transfusion of Nonautologous Red Blood Cells into Peripheral Vein, Percutaneous Approach (ICD-10-PCS; principal; 2023-12-04)
PROC: 0DBM8ZZ Excision of Descending Colon, Via Natural or Artificial Opening Endoscopic (ICD-10-PCS; 2023-12-05)
PROC: 0DBN8ZZ Excision of Sigmoid Colon, Via Natural or Artificial Opening Endoscopic (ICD-10-PCS; 2023-12-05)
PROC: 0DB98ZX Excision of Duodenum, Via Natural or Artificial Opening Endoscopic, Diagnostic (ICD-10-PCS; 2023-12-05 10:00)
PROC: 0DB68ZX Excision of Stomach, Via Natural or Artificial Opening Endoscopic, Diagnostic (ICD-10-PCS; 2023-12-05 10:00)
PROC: 0DBB8ZX Excision of Ileum, Via Natural or Artificial Opening Endoscopic, Diagnostic (ICD-10-PCS; 2023-12-05 10:00)
DX: D62 Acute posthemorrhagic anemia (principal); K92.1 Melena; I69.354 Hemiplegia and hemiparesis following cerebral infarction affecting left non-dominant side; N18.30 Chronic kidney disease, stage 3 unspecified; D63.1 Anemia in chronic kidney disease; I25.10 Atherosclerotic heart disease of native coronary artery without angina pectoris; Z66 Do not resuscitate; I48.0 Paroxysmal atrial fibrillation; N40.1 Benign prostatic hyperplasia with lower urinary tract symptoms; K63.5 Polyp of colon; R33.8 Other retention of urine; R94.5 Abnormal results of liver function studies; E11.22 Type 2 diabetes mellitus with diabetic chronic kidney disease; G47.33 Obstructive sleep apnea (adult) (pediatric); K21.9 Gastro-esophageal reflux disease without esophagitis; E11.40 Type 2 diabetes mellitus with diabetic neuropathy, unspecified; I12.9 Hypertensive chronic kidney disease with stage 1 through stage 4 chronic kidney disease, or unspecified chronic kidney disease; I69.322 Dysarthria following cerebral infarction; E78.00 Pure hypercholesterolemia, unspecified; H40.9 Unspecified glaucoma; L89.322 Pressure ulcer of left buttock, stage 2; L89.312 Pressure ulcer of right buttock, stage 2; Z88.5 Allergy status to narcotic agent; Z88.0 Allergy status to penicillin; Z88.8 Allergy status to other drugs, medicaments and biological substances; Z79.899 Other long term (current) drug therapy; Z79.4 Long term (current) use of insulin; Z79.84 Long term (current) use of oral hypoglycemic drugs; Z79.85 Long-term (current) use of injectable non-insulin antidiabetic drugs; Z79.01 Long term (current) use of anticoagulants; Z87.891 Personal history of nicotine dependence; Z95.5 Presence of coronary angioplasty implant and graft; Z96.612 Presence of left artificial shoulder joint; Z79.1 Long term (current) use of non-steroidal anti-inflammatories (NSAID); Z86.19 Personal history of other infectious and parasitic diseases
CPT/HCPCS: 36415; 36430; 70450; 74177; 76700; 80053; 81001; 82947; 83735; 84100; 85014; 85018; 85025; 85610; 85730; 86850; 86900; 86901; 86923; 93005; 93010; 94660; 94762; 96374; 99285-25; A9270; C9113; J0171; J1815; J2001; J2250; J2704; J7030; J7040; J7120; P9016; Q9967

== ENCOUNTER → 2023-12-21 | Outpatient (CLI) | payer OTHER ==
[~2023-12-21] MED LIST changes: +Aspir 8181 MG PO; +PANT40 PO
[2023-12-21 13:39] LABS: BASOPHILS PERCENT AUTO 1 % (0-2); EOSINOPHILS ABSOLUTE AUTO 0.78 K/mm3 (0.00-0.68); EOSINOPHILS PERCENT AUTO 8 % (0-6); Hemoglobin 10.5 g/dL (13.5-17.5); IMMATURE GRAN ABSOLUTE AUTO 0.04 K/mm3 (0.00-0.10); IMMATURE GRAN PERCENT AUTO 0 % (0-1); LYMPHOCYTES ABSOLUTE AUTO 0.94 K/mm3 (0.84-5.20); LYMPHOCYTES PERCENT AUTO 10 % (21-46); MONOCYTES ABSOLUTE AUTO 1.19 K/mm3 (0.16-1.47); MONOCYTES PERCENT AUTO 12 % (4-13); Mean Corpuscular HGB 28.7 pg (26.0-34.0); Mean Corpuscular HGB Conc 30.9 g/dL (31.5-36.5); Mean Corpuscular Volume 93 fL (80-100); Mean Platelet Volume 10.6 fL (9.1-12.4); NEUTROPHILS ABSOLUTE AUTO 6.58 K/mm3 (1.96-9.15); NEUTROPHILS PERCENT AUTO 68 % (41-73); Platelet Count 320 K/mm3 (150-400); RDW Coefficient Variation 15.5 % (11.7-14.2); RDW Standard Deviation 53.2 fL (35.1-46.3); Red Blood Cell Count 3.66 M/mm3 (4.30-5.90); White Blood Cell Count 9.63 K/mm3 (4.00-11.30)
[2023-12-21 14:10] LABS: Percent Saturation 10.5 % (20.0-50.0)
[2023-12-23 00:08] LABS: ALBUMIN 3.2 g/dL (3.8-4.8); ALKALINE PHOSPHATASE 1035 IU/L (44-121); ALT (SGPT) 83 IU/L (0-44); AST (SGOT) 99 IU/L (0-40); BILIRUBIN, DIRECT <0.10 mg/dL (0.00-0.40); BILIRUBIN, TOTAL <0.2 mg/dL (0.0-1.2); PROTEIN, TOTAL 6.5 g/dL (6.0-8.5)
== END ==
LOC: LAB SHORT 12:37 → LAB 12:37
PROVIDERS: Nurse Practitioner Family
DX: D50.9 Iron deficiency anemia, unspecified (principal)
CPT/HCPCS: 80076; 82728; 83540; 83550; 85025

== ENCOUNTER → 2023-12-28 | Outpatient (CLI) | payer OTHER ==
[2023-12-28 15:51] LABS: BASOPHILS ABSOLUTE AUTO 0.09 K/mm3 (0.00-0.23); BASOPHILS PERCENT AUTO 1 % (0-2); EOSINOPHILS ABSOLUTE AUTO 0.52 K/mm3 (0.00-0.68); EOSINOPHILS PERCENT AUTO 4 % (0-6); Hematocrit 32.8 % (37.0-53.0); Hemoglobin 10.1 g/dL (13.5-17.5); IMMATURE GRAN ABSOLUTE AUTO 0.06 K/mm3 (0.00-0.10); IMMATURE GRAN PERCENT AUTO 1 % (0-1); LYMPHOCYTES ABSOLUTE AUTO 0.98 K/mm3 (0.84-5.20); LYMPHOCYTES PERCENT AUTO 8 % (21-46); MONOCYTES ABSOLUTE AUTO 1.35 K/mm3 (0.16-1.47); MONOCYTES PERCENT AUTO 11 % (4-13); Mean Corpuscular HGB 28.1 pg (26.0-34.0); Mean Corpuscular HGB Conc 30.8 g/dL (31.5-36.5); Mean Corpuscular Volume 91 fL (80-100); Mean Platelet Volume 10.8 fL (9.1-12.4); NEUTROPHILS ABSOLUTE AUTO 9.59 K/mm3 (1.96-9.15); NEUTROPHILS PERCENT AUTO 76 % (41-73); Platelet Count 318 K/mm3 (150-400); RDW Coefficient Variation 15.6 % (11.7-14.2); RDW Standard Deviation 52.5 fL (35.1-46.3); White Blood Cell Count 12.59 K/mm3 (4.00-11.30)
== END | disposition home or self-care (01) ==
LOC: LAB SHORT 10:25 → LAB 10:25
PROVIDERS: Nurse Practitioner Family
DX: D50.9 Iron deficiency anemia, unspecified (principal)
CPT/HCPCS: 82728; 83540; 83550; 85025

== ENCOUNTER → 2024-01-04 | Outpatient (CLI) | payer OTHER ==
[2024-01-04 19:42] LABS: BASOPHILS PERCENT AUTO 1 % (0-2); EOSINOPHILS ABSOLUTE AUTO 0.39 K/mm3 (0.00-0.68); EOSINOPHILS PERCENT AUTO 5 % (0-6); Hematocrit 33.1 % (37.0-53.0); Hemoglobin 10.1 g/dL (13.5-17.5); IMMATURE GRAN ABSOLUTE AUTO 0.04 K/mm3 (0.00-0.10); IMMATURE GRAN PERCENT AUTO 1 % (0-1); LYMPHOCYTES ABSOLUTE AUTO 0.86 K/mm3 (0.84-5.20); LYMPHOCYTES PERCENT AUTO 10 % (21-46); MONOCYTES PERCENT AUTO 12 % (4-13); Mean Corpuscular HGB 27.7 pg (26.0-34.0); Mean Corpuscular HGB Conc 30.5 g/dL (31.5-36.5); Mean Corpuscular Volume 91 fL (80-100); NEUTROPHILS ABSOLUTE AUTO 6.12 K/mm3 (1.96-9.15); NEUTROPHILS PERCENT AUTO 72 % (41-73); Platelet Count 287 K/mm3 (150-400); RDW Coefficient Variation 15.2 % (11.7-14.2); RDW Standard Deviation 51.6 fL (35.1-46.3); Red Blood Cell Count 3.64 M/mm3 (4.30-5.90); White Blood Cell Count 8.51 K/mm3 (4.00-11.30)
[2024-01-04 19:50] LABS: Percent Saturation 13.2 % (20.0-50.0)
== END ==
LOC: LAB SHORT 17:56 → LAB 17:56
PROVIDERS: Nurse Practitioner Family
DX: D50.9 Iron deficiency anemia, unspecified (principal)
CPT/HCPCS: 82728; 83540; 83550; 85025

== ENCOUNTER 2024-12-02 14:39 | Emergency (ER) | payer OTHER ==
[~2024-12-02] VITALS: Ht 172.7 cm; Wt 94.3 kg
[~2024-12-02 14:39] MED LIST changes: +CEFU500T30 PO; +MACRODANTIN100 M1 PO
[2024-12-02 15:39] LABS: BASOPHILS ABSOLUTE AUTO 0.05 K/mm3 (0.00-0.23); BASOPHILS PERCENT AUTO 1 % (0-2); EOSINOPHILS ABSOLUTE AUTO 0.43 K/mm3 (0.00-0.68); EOSINOPHILS PERCENT AUTO 5 % (0-6); Hematocrit 39.4 % (37.0-53.0); IMMATURE GRAN ABSOLUTE AUTO 0.02 K/mm3 (0.00-0.10); IMMATURE GRAN PERCENT AUTO 0 % (0-1); LYMPHOCYTES PERCENT AUTO 10 % (21-46); MONOCYTES ABSOLUTE AUTO 1.02 K/mm3 (0.16-1.47); MONOCYTES PERCENT AUTO 11 % (4-13); Mean Corpuscular HGB 32.9 pg (26.0-34.0); Mean Corpuscular Volume 100 fL (80-100); NEUTROPHILS ABSOLUTE AUTO 6.96 K/mm3 (1.96-9.15); NEUTROPHILS PERCENT AUTO 74 % (41-73); Platelet Count 178 K/mm3 (150-400); RDW Coefficient Variation 12.9 % (11.7-14.2); RDW Standard Deviation 47.5 fL (35.1-46.3); Red Blood Cell Count 3.95 M/mm3 (4.30-5.90); White Blood Cell Count 9.38 K/mm3 (4.00-11.30)
[2024-12-02 16:00] LABS: Albumin, Blood 2.8 g/dL (3.4-5.0); Albumin/Globulin Ratio 0.7 (0.8-1.8); Bilirubin, Total 0.2 mg/dL (0.1-1.0); Bun/Creatinine Ratio 26.1 (12.0-20.0); Calcium, Blood 9.4 mg/dL (8.5-10.1); Creatinine, Blood 1.61 mg/dL (0.60-1.20); Globulin, Blood 3.9 g/dL (2.2-4.0); Potassium, Blood 4.3 mmol/L (3.5-5.5); Total Protein, Blood 6.7 g/dL (6.4-8.2)
[2024-12-02 18:40] VITALS: BP 145/80
== END 2024-12-02 18:41 | disposition home or self-care (01) ==
LOC: ER 14:39
PROVIDERS: Emergency Medicine
DX: M79.602 Pain in left arm (principal); M79.89 Other specified soft tissue disorders; I69.354 Hemiplegia and hemiparesis following cerebral infarction affecting left non-dominant side; I12.9 Hypertensive chronic kidney disease with stage 1 through stage 4 chronic kidney disease, or unspecified chronic kidney disease; N18.9 Chronic kidney disease, unspecified; E11.22 Type 2 diabetes mellitus with diabetic chronic kidney disease; I48.0 Paroxysmal atrial fibrillation; G47.33 Obstructive sleep apnea (adult) (pediatric); E78.5 Hyperlipidemia, unspecified; I25.10 Atherosclerotic heart disease of native coronary artery without angina pectoris; Z99.3 Dependence on wheelchair; Z88.0 Allergy status to penicillin; Z88.8 Allergy status to other drugs, medicaments and biological substances; Z88.5 Allergy status to narcotic agent; Z79.4 Long term (current) use of insulin; Z79.84 Long term (current) use of oral hypoglycemic drugs; Z79.85 Long-term (current) use of injectable non-insulin antidiabetic drugs; Z79.899 Other long term (current) drug therapy; Z87.891 Personal history of nicotine dependence
CPT/HCPCS: 73030; 80053; 85025; 99283-25

== ENCOUNTER 2024-12-14 21:52 | Inpatient (IN) | payer OTHER ==
[~2024-12-14] VITALS: Ht 175.3 cm; Wt 94.2 kg
[~2024-12-14 21:52] MED LIST changes: +ROSUVASTATIN CA20 MG PO
[2024-12-14 22:09] LABS: BASOPHILS ABSOLUTE AUTO 0.01 K/mm3 (0.00-0.23); BASOPHILS PERCENT AUTO 0 % (0-2); EOSINOPHILS ABSOLUTE AUTO 0.03 K/mm3 (0.00-0.68); EOSINOPHILS PERCENT AUTO 1 % (0-6); Hematocrit 45.7 % (37.0-53.0); Hemoglobin 14.9 g/dL (13.5-17.5); IMMATURE GRAN ABSOLUTE AUTO 0.03 K/mm3 (0.00-0.10); IMMATURE GRAN PERCENT AUTO 1 % (0-1); LYMPHOCYTES ABSOLUTE AUTO 0.44 K/mm3 (0.84-5.20); LYMPHOCYTES PERCENT AUTO 7 % (21-46); MONOCYTES ABSOLUTE AUTO 0.73 K/mm3 (0.16-1.47); MONOCYTES PERCENT AUTO 12 % (4-13); Mean Corpuscular HGB 31.9 pg (26.0-34.0); Mean Corpuscular HGB Conc 32.6 g/dL (31.5-36.5); Mean Corpuscular Volume 98 fL (80-100); Mean Platelet Volume 10.2 fL (9.1-12.4); NEUTROPHILS ABSOLUTE AUTO 4.89 K/mm3 (1.96-9.15); NEUTROPHILS PERCENT AUTO 80 % (41-73); Platelet Count 110 K/mm3 (150-400); RDW Coefficient Variation 12.5 % (11.7-14.2); RDW Standard Deviation 45.1 fL (35.1-46.3); Red Blood Cell Count 4.67 M/mm3 (4.30-5.90); White Blood Cell Count 6.13 K/mm3 (4.00-11.30)
[2024-12-14 22:23] LABS: International Normalized Ratio 0.96; Prothrombin Time Results 10.3 Sec (9.7-11.5)
[2024-12-14 22:26] LABS: Albumin, Blood 2.9 g/dL (3.4-5.0); Albumin/Globulin Ratio 0.6 (0.8-1.8); Bilirubin, Total 0.3 mg/dL (0.1-1.0); Bun/Creatinine Ratio 16.8 (12.0-20.0); Calcium, Blood 9.4 mg/dL (8.5-10.1); Creatinine, Blood 1.85 mg/dL (0.60-1.20); Potassium, Blood 4.9 mmol/L (3.5-5.5); Total Protein, Blood 7.9 g/dL (6.4-8.2)
[2024-12-14] MEDS ORDERED: Tenecteplase 50 MG / Kit IV ONE (22:50)
[2024-12-14] MEDS ORDERED: Ondansetron HCl 2 MG / ML 2ML Vial IV PRN (23:50)
[2024-12-14] MEDS ORDERED: FLU VACC TS2024-25(6MOS UP)/PF 45 MCG/0.5 ML SYRINGE IM ONE (23:50)
[2024-12-14] MEDS ORDERED: Acetaminophen 325 MG TABLET PO PRN (23:55)
[2024-12-15] MEDS ORDERED: Rosuvastatin Calcium 10 MG Tab PO SCH
[2024-12-15 00:43] LABS: BASOPHILS ABSOLUTE AUTO 0.01 K/mm3 (0.00-0.23); BASOPHILS PERCENT AUTO 0 % (0-2); EOSINOPHILS ABSOLUTE AUTO 0.02 K/mm3 (0.00-0.68); EOSINOPHILS PERCENT AUTO 0 % (0-6); Hematocrit 41.4 % (37.0-53.0); Hemoglobin 13.7 g/dL (13.5-17.5); IMMATURE GRAN ABSOLUTE AUTO 0.02 K/mm3 (0.00-0.10); IMMATURE GRAN PERCENT AUTO 0 % (0-1); LYMPHOCYTES PERCENT AUTO 8 % (21-46); MONOCYTES ABSOLUTE AUTO 0.79 K/mm3 (0.16-1.47); MONOCYTES PERCENT AUTO 13 % (4-13); Mean Corpuscular HGB 32.2 pg (26.0-34.0); Mean Corpuscular HGB Conc 33.1 g/dL (31.5-36.5); Mean Corpuscular Volume 97 fL (80-100); Mean Platelet Volume 10.2 fL (9.1-12.4); NEUTROPHILS ABSOLUTE AUTO 4.76 K/mm3 (1.96-9.15); NEUTROPHILS PERCENT AUTO 78 % (41-73); Platelet Count 99 K/mm3 (150-400); RDW Coefficient Variation 12.6 % (11.7-14.2); RDW Standard Deviation 45.1 fL (35.1-46.3); Red Blood Cell Count 4.26 M/mm3 (4.30-5.90)
[2024-12-15 00:59] LABS: Magnesium, Blood 1.9 mg/dL (1.6-2.4)
[2024-12-15 01:00] LABS: Albumin, Blood 2.5 g/dL (3.4-5.0); Albumin/Globulin Ratio 0.6 (0.8-1.8); Bilirubin, Total 0.2 mg/dL (0.1-1.0); Bun/Creatinine Ratio 18.6 (12.0-20.0); Calcium, Blood 8.5 mg/dL (8.5-10.1); Creatinine, Blood 1.61 mg/dL (0.60-1.20); Globulin, Blood 4.3 g/dL (2.2-4.0); Potassium, Blood 4.3 mmol/L (3.5-5.5); Total Protein, Blood 6.8 g/dL (6.4-8.2)
[2024-12-15] MEDS ORDERED: Docusate Sodium 100 MG Cap PO PRN (02:25)
[2024-12-15] MEDS ORDERED: TraMADol HCl 50 MG Tab PO PRN (02:25)
[2024-12-15] MEDS ORDERED: Pantoprazole Sodium 40 MG Tab PO SCH (06:00)
[2024-12-15] MEDS ORDERED: Dorzolamide 2% Opth Soln BOTHEYES SCH (09:00)
[2024-12-15] MEDS ORDERED: Fluticasone 0.05% Nasal Spray SCH (09:00)
[2024-12-15] MEDS ORDERED: Citalopram Hydrobromide 20 MG Tab PO SCH (09:00)
[2024-12-15] MEDS ORDERED: Torsemide 20 MG TAB PO SCH (09:00)
[2024-12-15] MEDS ORDERED: Gabapentin 300 MG Cap PO SCH (09:00)
[2024-12-15] MEDS ORDERED: Loratadine 10 MG Tab PO SCH (09:00)
[2024-12-15] MEDS ORDERED: Misc. Tablet PO SCH (09:00)
[2024-12-15] MEDS ORDERED: Empagliflozin 25 MG TAB PO SCH (09:00)
[2024-12-15] MEDS ORDERED: Metoprolol Succinate 25 MG TABCR PO SCH (09:00)
[2024-12-15] MEDS ORDERED: Losartan Potassium 50 MG Tab PO SCH (09:00)
[2024-12-15] MEDS ORDERED: Insulin Glargine-Yfgn 100 Unit/mL 3 ML SYR SC SCH (09:00)
[2024-12-15] MEDS ORDERED: Aspirin 81 MG Chew PO SCH (09:00)
[2024-12-15] MEDS ORDERED: Acetaminophen650 M1 PO (15:40)
[2024-12-15] MEDS ORDERED: JARDIANCE10 MG PO (15:46)
[2024-12-15] MEDS ORDERED: OZEMPIC1 MG/0.72 SC (15:48)
[2024-12-15] MEDS ORDERED: Celexa20 MG PO (15:49)
[2024-12-15] MEDS ORDERED: BUPROPION XL150 M1 PO (15:50)
[2024-12-15] MEDS ORDERED: VITAMIN D350 MC3 PO (15:58)
[2024-12-15] MEDS ORDERED: ABILIFY MYCITE2 M2 PO (15:58)
[2024-12-15] MEDS ORDERED: LATA.005SO BOTHEYES (16:00)
[2024-12-15 16:03] VITALS: BP 118/69
--- NOTE | 2024-12-15 18:00 | NUR ---
SHIFT SUMMARY PT A&OX3, DOESNT RECAL DATE, PT REPORTS INCREASE IN CONFUSION SINCE BEING SICKNESS. PT ADMITTED DUE TO SYMPTOMS OF CVA. PT HAS HX OF STROKE AND TIA. ER NURSE REPORTS PT HAVING HAD MRI. PT HAS L SIDE DEFICITS DUE TO HX OF STROKE. PT IS LIFT PT AT BASELINE. PT ADMITTED WITH CHRONIC INDWELLING URINARY CATH, WILL PASS ON TO NIGHT NURSE THAT CATHETER NEEDS CHANGED AND URINE SAMPLE NEEDS COLLECTED. CURRENT CATH HAS SOME SETIMENT. URINE FREE FLOWING WITH NO DEPENDENT LOOPS. PT REPORTS BEING A DNR. CHART REPORTS PT BEING FULL CODE. REPORTED PT CODE STATUS TO CHARGE NURSE AND DR. FISHER. PT INC. OF BOWELS, REPORTS LAST HAD STOOL ON 12-13-24 AND IT WAS LOOSE. PT HAS HX OF AMPUTATION OF A FEW TOES. PT IS Q2 TURN. PT PUPILS ARE PEARLA. NEURO CHECKS Q4HR. PT CAME WITH PREVIOUS PRESSURE INJURIES, STAGE 2 ON R HEEL AND STAGE [address]. PHOTO IN CHART. MED REC WAS UPDATED, NOTIFIED DR. FISHER OF CHANGES. CALLED DR. FISHER NOTIFIED PT HAS GLARGINE ORDER AND CBG WAS PRN. CGB NOW ORDERED ACHS. PT ORIENTED TO UNIT AND CALL LIGHT AND FALL PRECAUTIONS. BED IN LOWEST POSITION. WAS AT BEDSIDE AT ADMISSION. BED IN LOWEST POSITION, CALL LIGHT IN REACH.
[2024-12-15 20:09] VITALS: BP 146/87
[2024-12-15] MEDS ORDERED: Famotidine 20 MG Tab PO SCH (21:00)
[2024-12-15] MEDS ORDERED: Tamsulosin HCl 0.4 MG Cap PO SCH (21:00)
[2024-12-16 03:05] VITALS: BP 152/88
--- NOTE | 2024-12-16 05:02 | NUR ---
SHIFT SUMMARY: Pt is admitted for SX of CVA and is a full code. Is alert and able to make needs known. ADLs have been 1-2p depending on activity but did not get out of bed. On droplet ISO for FLU A. states that he has low level pain but declines PRN medication when offered. Stated he would let this LN know when he was ready for it. Telly reports sinus in the 80s with a 1 deg and bundle branch. Folly in place and draining clear camilo urine with some sediment.
[2024-12-16 07:21] VITALS: BP 128/87
--- NOTE | 2024-12-16 09:00 | NUR ---
pt laying in bed awake, a/ox3, cooperative with care, follows commands well, states pain ok, lungs are clear in upper [place], course in bases, on r/a, hrr tele in place running sr with first degree block and bbb, piv to rac site is clear and patent, btx4, abd flat soft nontender, voids via chronic chaves cath, has wound to buttocks and right heel, is 1-2 person assist in bed, pt is bedrest, left arm is flacid, some gross movement in right. swallows without diff, call light in reach.
[2024-12-16] MEDS ORDERED: FAMO20 PO (13:07)
[2024-12-16] MEDS ORDERED: TAMS.4ER PO (13:07)
[2024-12-16] MEDS ORDERED: SOAANZ20 M1 PO (13:08)
--- NOTE | 2024-12-16 13:33 | NUR ---
Went over discharge instructions with pt , she verbalized understanding, new meds faxed to [facility], ivs removed intact, will leave via wheelchair with and md allergy immunology in attendence with all belongings.
--- NOTE | 2024-12-16 14:05 | NUR ---
pt left via wheelchair with needle straightener and family with all belongings.
== END 2024-12-16 15:30 | disposition home or self-care (01) | DRG 71 ==
LOC: ER 21:52 → ERHOLD 23:48 → MEDS 12-15 15:15
PROVIDERS: Emergency Medicine; ADMIT Student in an Organized Health Care Education/Training Program
DX: G93.40 Encephalopathy, unspecified (principal); I69.354 Hemiplegia and hemiparesis following cerebral infarction affecting left non-dominant side; M54.50 Low back pain, unspecified; M54.2 Cervicalgia; G89.29 Other chronic pain; G47.33 Obstructive sleep apnea (adult) (pediatric); I25.10 Atherosclerotic heart disease of native coronary artery without angina pectoris; E78.5 Hyperlipidemia, unspecified; E11.39 Type 2 diabetes mellitus with other diabetic ophthalmic complication; H42 Glaucoma in diseases classified elsewhere; E11.22 Type 2 diabetes mellitus with diabetic chronic kidney disease; I12.9 Hypertensive chronic kidney disease with stage 1 through stage 4 chronic kidney disease, or unspecified chronic kidney disease; I48.0 Paroxysmal atrial fibrillation; N18.32 Chronic kidney disease, stage 3b; R41.0 Disorientation, unspecified; D50.9 Iron deficiency anemia, unspecified; F43.10 Post-traumatic stress disorder, unspecified; Z96.652 Presence of left artificial knee joint; R29.707 NIHSS score 7; B34.9 Viral infection, unspecified; R47.81 Slurred speech; Z88.0 Allergy status to penicillin; Z88.5 Allergy status to narcotic agent; Z88.8 Allergy status to other drugs, medicaments and biological substances; Z79.4 Long term (current) use of insulin; Z79.84 Long term (current) use of oral hypoglycemic drugs; Z79.899 Other long term (current) drug therapy; Z79.891 Long term (current) use of opiate analgesic; Z79.82 Long term (current) use of aspirin; Z98.1 Arthrodesis status; Z98.890 Other specified postprocedural states; Z95.5 Presence of coronary angioplasty implant and graft; Z89.422 Acquired absence of other left toe(s); Z89.421 Acquired absence of other right toe(s); Z87.891 Personal history of nicotine dependence; Z79.02 Long term (current) use of antithrombotics/antiplatelets; Z28.29 Immunization not carried out because of patient decision for other reason
CPT/HCPCS: 70450; 70496; 70498; 70551; 71045; 80053; 82947; 83735; 84484; 85025; 85610; 85730; 93005; 93010; 99285-25; A9270; J1815; J3101; Q9967

== ENCOUNTER → 2025-05-31 | Outpatient (CLI) | payer OTHER ==
[~2025-05-31] MED LIST changes: +ABILIFY MYCITE2 M2 PO; +BUPROPION XL150 M1 PO; +Celexa20 MG PO; +DOXY100 PO; +JARDIANCE10 MG PO; +OZEMPIC1 MG/0.72 SC; +VISBIOME 112.51 EACH PO; +VITAMIN D350 MC3 PO
[2025-05-31 17:47] LABS: Protein, Urine Quantitative 216.8 mg/dL (0.0-11.9)
[2025-05-31 17:49] LABS: Microalbumin, Urine Quant. 1890.000 mg/L (0.000-20.000)
== END | disposition home or self-care (01) ==
LOC: LAB 10:46 → LAB SHORT 10:46
PROVIDERS: Internal Medicine Nephrology
DX: N18.30 Chronic kidney disease, stage 3 unspecified (principal); D63.1 Anemia in chronic kidney disease; N25.81 Secondary hyperparathyroidism of renal origin; E55.9 Vitamin D deficiency, unspecified; E78.00 Pure hypercholesterolemia, unspecified; D52.8 Other folate deficiency anemias; D51.8 Other vitamin B12 deficiency anemias; D50.9 Iron deficiency anemia, unspecified; R76.9 Abnormal immunological finding in serum, unspecified; R94.5 Abnormal results of liver function studies; R94.6 Abnormal results of thyroid function studies
CPT/HCPCS: 82043; 82570; 84156

== ENCOUNTER → 2025-10-27 | Outpatient (CLI) | payer OTHER ==
[2025-10-30 09:23] LABS: Stool Occult Bld Immuno 1 Positive (NEGATIVE)
== END | disposition home or self-care (01) ==
LOC: LAB 10-23 11:40 → LAB FUT 05-29 08:30
PROVIDERS: Internal Medicine Nephrology
DX: N18.30 Chronic kidney disease, stage 3 unspecified (principal); D63.1 Anemia in chronic kidney disease; N25.81 Secondary hyperparathyroidism of renal origin; E55.9 Vitamin D deficiency, unspecified; E78.00 Pure hypercholesterolemia, unspecified; R76.9 Abnormal immunological finding in serum, unspecified; R94.5 Abnormal results of liver function studies; R94.6 Abnormal results of thyroid function studies; G60.9 Hereditary and idiopathic neuropathy, unspecified; D51.8 Other vitamin B12 deficiency anemias; D52.8 Other folate deficiency anemias; D50.9 Iron deficiency anemia, unspecified; R33.9 Retention of urine, unspecified
CPT/HCPCS: 81050; 82043; 82274; 82570; 84156

== ENCOUNTER → 2025-10-29 | Outpatient (CLI) | payer OTHER ==
[2025-10-29 19:41] LABS: Protein, Urine Quantitative 303.6 mg/dL (0.0-11.9)
== END | disposition home or self-care (01) ==
LOC: LAB 11:22 → LAB SHORT 11:22
PROVIDERS: Internal Medicine Nephrology
DX: N18.30 Chronic kidney disease, stage 3 unspecified (principal); D63.1 Anemia in chronic kidney disease; N25.81 Secondary hyperparathyroidism of renal origin; E55.9 Vitamin D deficiency, unspecified; E29.1 Testicular hypofunction; D51.8 Other vitamin B12 deficiency anemias; D52.8 Other folate deficiency anemias; D50.9 Iron deficiency anemia, unspecified; G60.8 Other hereditary and idiopathic neuropathies; R94.6 Abnormal results of thyroid function studies; R94.5 Abnormal results of liver function studies; R76.9 Abnormal immunological finding in serum, unspecified
CPT/HCPCS: 81050; 82043; 82570; 84156